=== PATIENT | female | born 1955 | race Two or more races ===

== ENCOUNTER 2021-01-19 21:47 | Inpatient (IN) | payer BC, OTHER ==
[~2021-01-19] VITALS: Ht 165.1 cm; Wt 56.7 kg
[2021-01-19 23:12] LABS: BASOPHILS # (AUTO) 0.2 K/uL (0.0-0.2); BASOPHILS % (AUTO) 0.9 % (0.0-2.0); HEMATOCRIT 23 % (33-45); HEMOGLOBIN 7.2 g/dL (11.5-14.8); LYMPHOCYTES # (AUTO) 13.4 K/uL (0.8-4.8); LYMPHOCYTES % (AUTO) 56.1 % (20.0-44.0); MEAN CORPUSCULAR HGB CONC 32 g/dl (31.0-36.0); MEAN CORPUSCULAR VOLUME 103 fL (82-100); MONOCYTES # (AUTO) 0.6 K/uL (0.1-1.30); MONOCYTES % (AUTO) 2.4 % (2.0-12.0); NEUTROPHILS # (AUTO) 9.7 K/uL (1.8-8.9); NEUTROPHILS % (AUTO) 40.6 % (43.0-81.0); PLATELET COUNT (AUTO) 145 K/uL (150-450); RED BLOOD CELL COUNT(AUTO) 2.21 MIL/uL (4.0-5.2); WHITE BLOOD COUNT (AUTO) 23.9 K/uL (4.3-11.0)
[2021-01-19 23:33] LABS: CALCIUM, SERUM 8.4 mg/dL (8.5-10.1); CARBON DIOXIDE 24 mmol/L (21-32); CHLORIDE 101 mmol/L (98-107); GLUCOSE 338 mg/dL (74-106); POTASSIUM 3.9 mmol/L (3.5-5.1); SODIUM SERUM 136 mmol/L (136-145); UREA NITROGEN, BLOOD 16 mg/dL (7-18)
[2021-01-19 23:34] LABS: CREATININE 1.1 mg/dL (0.6-1.3)
--- NOTE | 2021-01-19 23:45 | NUR ---
PT [email or web address] C/O L RIB LATERAL RIB PAIN X 3 DAYS. AGGREAVATED BY PALPATION AND MOVEMENT. PT IN STABLE CONDITION RESTING IN BED.
--- NOTE | 2021-01-19 23:53 | NUR ---
CALLED NONA FOR X RAY READ
[2021-01-20] MEDS ORDERED: IOHEXOL-350 100 ML VIAL IV ONE (00:13)
--- NOTE | 2021-01-20 00:13 | NUR ---
taken to radiology
[2021-01-20] MEDS ORDERED: IV NS 0.9% 250 ML IV ONE (00:14)
--- NOTE | 2021-01-20 00:30 | NUR ---
BACK FROM CT
--- NOTE | 2021-01-20 00:53 | NUR ---
called dung to have images read
[2021-01-20] MEDS ORDERED: IV NS 0.9% 1,000 ML IV ONE (01:00)
[2021-01-20] MEDS ORDERED: ONDANSETRON HCL/PF - ER 4 MG/2 ML VIAL IV ONE (01:00)
[2021-01-20] MEDS ORDERED: MORPHINE SULFATE INJ 2 MG/ML DISP.SYRIN IV ONE (01:00)
[2021-01-20] MEDS ORDERED: ONDANSETRON HCL/PF 4 MG/2 ML VIAL ONE (01:01)
--- NOTE | 2021-01-20 01:45 | NUR ---
COVID SWAB DONE AND SENT TO LAB
--- NOTE | 2021-01-20 02:02 | NUR ---
urine collected and sent to lab.
[2021-01-20 02:45] LABS: BILIRUBIN,URINE NEGATIVE (NEGATIVE); COLOR,URINE YELLOW (YELLOW); LEUKOCYTE ESTERASE ,URINE NEGATIVE (NEGATIVE); NITRITE, URINE NEGATIVE (NEGATIVE); PROTEIN,URINE TRACE mg/dl (NEGATIVE); UGLUCOSE >=1000 mg/dL (NEGATIVE)
[2021-01-20 02:55] LABS: BACTERIA,URINE None seen /HPF (None Seen); MUCUS,URINE Few /LPF (None Seen); RBC,URINE 0-2 /HPF (0-2); SQUAMOUS EPITHELIAL CELL,UR Few /HPF (None Seen); WBC,URINE 0-2 /HPF (0-3)
[2021-01-20] MEDS ORDERED: MAG HYDROX/AL HYDROX/SIMETH 30 ML UDC PO PRN (03:00)
[2021-01-20] MEDS ORDERED: TEMAZEPAM 15 MG CAPSULE PO PRN (03:00)
[2021-01-20] MEDS ORDERED: MAGNESIUM HYDROXIDE 30 ML UDC PO PRN (03:00)
[2021-01-20] MEDS ORDERED: DEXTROSE 50%-WATER 50 ML DISP.SYRIN IV PRN (03:00)
[2021-01-20] MEDS ORDERED: Z GUARD REMEDY 2 OZ OINT TP PRN (03:00)
--- NOTE | 2021-01-20 03:14 | NUR ---
report given to Irasema on third floor
[2021-01-20] MEDS ORDERED: IBRU70CA PO (03:27)
[2021-01-20] MEDS ORDERED: ATEN25TA PO (03:27)
[2021-01-20] MEDS ORDERED: LOSA25TA27 PO (03:27)
--- NOTE | 2021-01-20 03:43 | NUR ---
pt was transferred to the third floor under acls
[2021-01-20 03:45] VITALS: BP 154/69
[2021-01-20 03:50] VITALS: BP 154/69
[2021-01-20] MEDS: ACETAMINOPHEN 325 MG TABLET PO PRN (04:32)
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
[2021-01-20] MEDS: MORPHINE SULFATE INJ 2 MG/ML DISP.SYRIN IV PRN ×2 (05:10→20:50)
--- NOTE | 2021-01-20 05:22 | NUR ---
alerted MD that WBC 23.9. md replied no abx indicated
--- NOTE | 2021-01-20 06:23 | NUR ---
patient still A&Ox4. ST on monitor approx. 103. states morphine was helpful in relieving pain.
[2021-01-20] MEDS: BLOOD SUGAR DIAGNOSTIC 1 EACH STRIP IN SCH ×4 (06:58→21:29)
--- NOTE | 2021-01-20 07:30 | NUR ---
STEREOTYPE CASTER NOTES ON TELE MONITOR CURRENTLY READING NORMAL SINUS RHYTHM AT 72BPM.
--- NOTE | 2021-01-20 07:30 | NUR ---
ACCORDION MAKER OPENING NOTES RECEIVED PATIENT AWAKE ON BED AND A/O X4. ON ROOM AIR TOLERATING WELL. NO SOB NOTED. NOT IN DISTRESS. WITH IV ACCESS AT LEFT AC G18, SALINE LOCKED AND AT RIGHT FOREARM G18, SALINE LOCKED. PATENT AND INTACT. SAFETY MEASURES IN PLACED. CALL LIGHT WITHIN REACH. BED ON LOWEST AND LOCKED POSITION, SIDE RAILS UP X2. WILL CONTINUE TO MONITOR.
[2021-01-20 08:00] VITALS: BP 157/69
[2021-01-20] MEDS: ASPIRIN 81 MG TAB.CHEW PO SCH (08:08)
[2021-01-20] MEDS: PANTOPRAZOLE 40 MG TABLET.DR PO SCH (08:08)
[2021-01-20] MEDS: HYDROCODONE/APAP 5/325MG TABLET PO PRN ×2 (08:09→17:23)
[2021-01-20] MEDS ORDERED: IBRU420T PO (08:42)
[2021-01-20] MEDS ORDERED: CLON0.1T PO (08:42)
[2021-01-20] MEDS ORDERED: HYDR25TA4 PO (08:42)
[2021-01-20] MEDS ORDERED: ALPR0.255 PO (08:42)
[2021-01-20] MEDS ORDERED: AMLO-213 PO (08:42)
[2021-01-20] MEDS ORDERED: VANCOMYCIN HCL 1.25 GM in IV D5W 260 ML IV ONE (11:00)
[2021-01-20] MEDS ORDERED: PIPERACILLIN /TAZOBACTAM 4.5 G in IV D5W 50 ML IV SCH (12:00)
[2021-01-20] MEDS: INDOMETHACIN 25 MG CAPSULE PO SCH ×2 (12:08→20:50)
[2021-01-20] MEDS: INSULIN REGULAR, HUMAN 100 UNIT/ML 3 ML VIAL SQ PRN ×2 (12:41→17:54)
[2021-01-20 12:55] LABS: BASOPHILS % (AUTO) 0.1 % (0.0-2.0); EOSINOPHILS % (AUTO) 0.1 % (0.0-6.0); HEMATOCRIT 23 % (33-45); HEMOGLOBIN 7.3 g/dL (11.5-14.8); LYMPHOCYTES # (AUTO) 23.9 K/uL (0.8-4.8); LYMPHOCYTES % (AUTO) 66.2 % (20.0-44.0); MEAN CORPUSCULAR HGB CONC 31 g/dl (31.0-36.0); MEAN CORPUSCULAR VOLUME 105 fL (82-100); MONOCYTES # (AUTO) 1.1 K/uL (0.1-1.30); MONOCYTES % (AUTO) 2.9 % (2.0-12.0); NEUTROPHILS # (AUTO) 11.1 K/uL (1.8-8.9); NEUTROPHILS % (AUTO) 30.7 % (43.0-81.0); PLATELET COUNT (AUTO) 156 K/uL (150-450); RED BLOOD CELL COUNT(AUTO) 2.23 MIL/uL (4.0-5.2)
[2021-01-20 12:59] LABS: WHITE BLOOD COUNT (AUTO) 36.1 K/uL (4.3-11.0)
[2021-01-20 14:03] LABS: THYROID STIMULATING HORMONE 0.732 uIU/mL (0.358-3.74); URIC ACID 7.8 mg/dL (2.6-7.2)
[2021-01-20] MEDS: VANCOMYCIN 1 GM in IV D5W 250 ML IV SCH (14:10)
[2021-01-20 14:43] LABS: LYMPHOCYTES % (MANUAL) 60 % (16-48); MONOCYTES % (MANUAL) 5 % (0-11.0); NEUTROPHILS % (MANUAL) 35 (42-76)
[2021-01-20 14:51] LABS: BILIRUBIN,DIRECT 1.4 mg/dL (0.0-0.2); BILIRUBIN,TOTAL 2.5 mg/dL (0.2-1.0); CALCIUM, SERUM 8.4 mg/dL (8.5-10.1); POTASSIUM 3.7 mmol/L (3.5-5.1); TOTAL PROTEIN, SERUM 7.1 g/dL (6.4-8.2)
[2021-01-20 16:00] VITALS: BP 134/62
[2021-01-20] MEDS: PIPERACILLIN /TAZOBACTAM 3.375 G in IV D5W 50 ML IV SCH ×2 (16:10→18:20)
--- NOTE | 2021-01-20 19:31 | NUR ---
TEMPORARY STAFF ACCOUNTANT CLOSING NOTES PATIENT RESTING ON BED AND A/O X4. ON ROOM AIR TOLERATING WELL. NO SOB NOTED. NOT IN DISTRESS. WITH IV ACCESS AT LEFT AC G18, SALINE LOCKED AND AT RIGHT FOREARM G18, SALINE LOCKED. PATENT AND INTACT. DUE MEDS GIVEN. SAFETY MEASURES IN PLACED. CALL LIGHT WITHIN REACH. BED ON LOWEST AND LOCKED POSITION, SIDE RAILS UP X2. WILL ENDORSE TO NEXT SHIFT FOR FARAZ.
--- NOTE | 2021-01-20 19:45 | NUR ---
Patient is A&Ox4. IV to LFA patent and flushed. states that her L chest pain has greatly subsided and she feels more energy/less fatigue than day prior. denies SOB. No hypo or hyperglycemic s or sx. Educated pt. that she will be NPO post midnight for US guided thoracentesis -pt. verbalizes understanding.
[2021-01-20 20:00] VITALS: BP 134/88
[2021-01-21] VITALS (8 sets, daily range): BP systolic 113–141; BP diastolic 47–69
[2021-01-21] MEDS: PIPERACILLIN /TAZOBACTAM 3.375 G in IV D5W 50 ML IV SCH ×5 (00:01→23:09)
[2021-01-21] MEDS: INDOMETHACIN 25 MG CAPSULE PO SCH (05:28)
[2021-01-21 06:34] LABS: BASOPHILS % (AUTO) 0.1 % (0.0-2.0); EOSINOPHILS % (AUTO) 0.2 % (0.0-6.0); LYMPHOCYTES # (AUTO) 15.1 K/uL (0.8-4.8); LYMPHOCYTES % (AUTO) 66.2 % (20.0-44.0); MEAN CORPUSCULAR HGB CONC 32 g/dl (31.0-36.0); MEAN CORPUSCULAR VOLUME 104 fL (82-100); MONOCYTES # (AUTO) 0.7 K/uL (0.1-1.30); MONOCYTES % (AUTO) 3.1 % (2.0-12.0); NEUTROPHILS # (AUTO) 6.9 K/uL (1.8-8.9); NEUTROPHILS % (AUTO) 30.4 % (43.0-81.0); PLATELET COUNT (AUTO) 130 K/uL (150-450); WHITE BLOOD COUNT (AUTO) 22.9 K/uL (4.3-11.0)
[2021-01-21] MEDS: INSULIN REGULAR, HUMAN 100 UNIT/ML 3 ML VIAL SQ PRN ×3 (06:49→21:08)
[2021-01-21] MEDS: BLOOD SUGAR DIAGNOSTIC 1 EACH STRIP IN SCH ×4 (06:53→21:06)
--- NOTE | 2021-01-21 07:00 | NUR ---
Patient A&Ox4. denies pain or discomfort at this time reporting that L chest pain has greatly subsided. assisted to BSC for toileting. Patient still reports feeling stronger than day prior. inserted new IV R wrist #22G because pt reports flushes were stinging even though they were going through smoothly to RAC #18G. No irritation To R wrist #22G. No other overnight issues.
[2021-01-21 07:02] LABS: RED BLOOD CELL COUNT(AUTO) 1.78 MIL/uL (4.0-5.2)
[2021-01-21 07:03] LABS: HEMATOCRIT 18 % (33-45); HEMOGLOBIN 5.9 g/dL (11.5-14.8)
--- NOTE | 2021-01-21 07:08 | NUR ---
Received call from lab at 07 critical hgb 5.9 and hct 18.4. hugh Gorman at 0705
--- NOTE | 2021-01-21 07:41 | NUR ---
MS/RN OPENING NOTES RECEIVED PATIENT ON BED AWAKE ALERT AND ORIENTED X4. PATIENT IS ON ROOM AIR. PATIENT IN NO APPARENT RESPIRATORY DISTRESS NOTED. NO COMPLAINED OF PAIN AT THIS TIME. WILL CONTINUE TO MONITOR.
[2021-01-21 07:48] LABS: CALCIUM, SERUM 8.2 mg/dL (8.5-10.1); CREATININE 1.3 mg/dL (0.6-1.3); MAGNESIUM 2.1 mg/dL (1.8-2.4); PHOSPHORUS 3.3 mg/dL (2.5-4.9); POTASSIUM 3.6 mmol/L (3.5-5.1)
[2021-01-21] MEDS: PANTOPRAZOLE 40 MG TABLET.DR PO SCH (07:50)
[2021-01-21 07:51] LABS: THYROID STIMULATING HORMONE 0.498 uIU/mL (0.358-3.74)
[2021-01-21] MEDS: ASPIRIN 81 MG TAB.CHEW PO SCH (09:00)
[2021-01-21 09:32] LABS: LYMPHOCYTES % (MANUAL) 70 % (16-48); MONOCYTES % (MANUAL) 4 % (0-11.0); NEUTROPHILS % (MANUAL) 26 (42-76)
[2021-01-21 10:07] LABS: *SPE A/G RATIO 0.9 (0.7-1.7); *SPE ALPHA-1-GLOBULIN 0.6 g/dL (0.0-0.4); *SPE BETA GLOBULIN 0.7 g/dL (0.7-1.3); *SPE M-SPIKE 0.1 g/dL (Not Observed); IMMUNOGLOBULIN A, SERUM 55 mg/dL (87-352); IMMUNOGLOBULIN G, SERUM 580 mg/dL (586-1602); IMMUNOGLOBULIN M, SERUM 44 mg/dL (26-217)
[2021-01-21] MEDS ORDERED: ACETAMINOPHEN 325 MG TABLET PO ONE (11:30)
[2021-01-21] MEDS ORDERED: diphenhydrAMINE HCL 50 MG/ML VIAL IV ONE (11:30)
[2021-01-21] MEDS: GLUCERNA SHAKE 237 ML CAN PO SCH ×2 (12:00→17:08)
--- NOTE | 2021-01-21 12:00 | NUR ---
RN NOTES BS 207MG/DL INSULIN 4 UNITS NOT ADMINISTERED PATIENT REFUSED AND VERBALIZED THAT SHE DOESN'T WANT TO EAT LUNCH. EXPLAINED THE RISK AND BENEFITS. WILL CONTINUE TO MONITOR.
[2021-01-21 12:02] LABS: ALBUMIN 2.3 g/dL (3.4-5.0); BILIRUBIN,DIRECT 1.3 mg/dL (0.0-0.2)
[2021-01-21] MEDS: VANCOMYCIN 1 GM in IV D5W 250 ML IV SCH (13:26)
--- NOTE | 2021-01-21 15:38 | NUR ---
RN NOTES BLOOD TRANSFUSION WAS DONE NO BLOOD TRANSFUSION REACTION WAS NOTED FROM START TO FINISHED VITAL TAKEN AND RECORDED. WILL CONTINUE TO MONITOR.
[2021-01-21] MEDS: MORPHINE SULFATE INJ 2 MG/ML DISP.SYRIN IV PRN ×2 (18:51→23:19)
--- NOTE | 2021-01-21 18:56 | NUR ---
MS/RN CLOSING NOTES PATIENT IS ON BED AWAKE ALERT AND ORIENTED X4. PATIENT IS ON ROOM AIR. PATIENT IN NO APPARENT RESPIRATORY DISTRESS NOTED. NO COMPLAINED OF PAIN AT THIS TIME. IV ACCESS AT WRIST #22G AND LAC # 20G PATENT AND INTACT. SEEN AND EXAMINED BY MD WITH ORDERS MADE AND CARRIED OUT. ALL DUE MEDICATIONS WAS GIVEN. SAFETY PRECAUTIONS WAS IN PLACED. BED IN LOWEST POSITION AND LOCKED. SIDERAILS UP X2. CALL LIGHT WITHIN REACH. LEFT LUNG US GUIDED THORACENTESIS DONE 200 CC WAS OUT SPECIMEN WAS SENT TO LAB FOR PATHOLOGY. WILL ENDORSED TO FIELD CROP HARVEST CONTRACTOR FOR FARAZ.
--- NOTE | 2021-01-21 19:24 | NUR ---
MS RN OPENING NOTES RECEIVED PATIENT IN BED, SLEEPING, AWAKENS TO VERBAL STIMULI. PT IS AOx4. ABLE TO MAKE NEEDS KNOWN. ON RA AND TOLERATING WELL. NO SOB NOTED. NO S/SX OF RESPIRATORY DISTRESS NOTED. IV ACCESS IN R WRIST #22G AND L AC #18G. IVs ARE INTACT, PATENT, AND FLUSHING WELL. SAFETY PRECAUTIONS IN PLACE: BED IN LOWEST, LOCKED POSITION, BRAKES ON, SIDERAILS UPx2. TABLE AND CALL LIGHT WITHIN REACH. WILL CONTINUE TO MONITOR.
--- NOTE | 2021-01-21 23:28 | NUR ---
ADMINISTERED MORPHINE @ 2319. VITAL SIGNS WNL. WILL CONTINUE TO MONITOR.
[2021-01-22] MEDS: PIPERACILLIN /TAZOBACTAM 3.375 G in IV D5W 50 ML IV SCH ×3 (05:09→17:07)
[2021-01-22] MEDS: MORPHINE SULFATE INJ 2 MG/ML DISP.SYRIN IV PRN ×2 (05:11→20:40)
--- NOTE | 2021-01-22 05:11 | NUR ---
ADMINISTERED MORPHINE @0511, PER MD ORDER FOR PAIN. VITAL SIGNS WNL. WILL CONTINUE TO MONITOR.
[2021-01-22] MEDS: BLOOD SUGAR DIAGNOSTIC 1 EACH STRIP IN SCH ×4 (06:13→21:57)
[2021-01-22] MEDS: INSULIN REGULAR, HUMAN 100 UNIT/ML 3 ML VIAL SQ PRN ×3 (06:31→22:08)
--- NOTE | 2021-01-22 06:39 | NUR ---
MS RN CLOSING NOTES PATIENT IN BED, ASLEEP, AWAKENS TO VERBAL STIMULI. PT IS AOx4. ABLE TO MAKE NEEDS KNOWN. ON RA AND TOLERATING WELL. NO SOB NOTED. NO S/SX OF RESPIRATORY DISTRESS NOTED. IV ACCESS IN R WRIST #22G AND L AC #18G. IVs ARE INTACT, PATENT, AND FLUSHING WELL. TREATED PAIN THROUGHOUT SHIFT. ALL NEEDS MET. PT KEPT CLEAN AND DRY. SAFETY PRECAUTIONS IN PLACE: BED IN LOWEST, LOCKED POSITION, BRAKES ON, SIDERAILS UPx2. TABLE AND CALL LIGHT WITHIN REACH. WILL ENDORSE TO ONCOMING SHIFT.
[2021-01-22 07:08] LABS: BASOPHILS # (AUTO) 0.1 K/uL (0.0-0.2); BASOPHILS % (AUTO) 0.2 % (0.0-2.0); EOSINOPHILS % (AUTO) 0.4 % (0.0-6.0); HEMATOCRIT 24 % (33-45); LYMPHOCYTES # (AUTO) 15.9 K/uL (0.8-4.8); LYMPHOCYTES % (AUTO) 60.7 % (20.0-44.0); MEAN CORPUSCULAR HGB CONC 33 g/dl (31.0-36.0); MEAN CORPUSCULAR VOLUME 98 fL (82-100); MONOCYTES # (AUTO) 1.1 K/uL (0.1-1.30); MONOCYTES % (AUTO) 4.1 % (2.0-12.0); NEUTROPHILS # (AUTO) 9.1 K/uL (1.8-8.9); NEUTROPHILS % (AUTO) 34.6 % (43.0-81.0); PLATELET COUNT (AUTO) 178 K/uL (150-450); RED BLOOD CELL COUNT(AUTO) 2.48 MIL/uL (4.0-5.2); WHITE BLOOD COUNT (AUTO) 26.2 K/uL (4.3-11.0)
[2021-01-22 07:35] LABS: ALBUMIN 2.1 g/dL (3.4-5.0); BILIRUBIN,TOTAL 2.1 mg/dL (0.2-1.0); CALCIUM, SERUM 8.3 mg/dL (8.5-10.1); CREATININE 1.2 mg/dL (0.6-1.3); MAGNESIUM 2.1 mg/dL (1.8-2.4); PHOSPHORUS 2.8 mg/dL (2.5-4.9); POTASSIUM 3.3 mmol/L (3.5-5.1)
--- NOTE | 2021-01-22 07:56 | NUR ---
RN OPENING NOTE PT AWAKE IN BED RESTING. ON RA WITH NO SOB OR RESPIRATORY DISTRESS PRESENT. A/O X4 AND KYRGYZ SPEAKING. NO COMPLAINT OF PAIN OR NAUSEA PRESENT. NO SCHEDULING CLERK PRESENT. NO EDEMA PRESENT. SELF AMBULATORY WITH STANDBY ASSIST. BATHROOM PRIVILEGES. SKIN ISSUES PRESENT, PICTURES IN CHART, WOUND CARE ORDERED. IV PRESENT ON R WRIST 22G AND L AC 18G AND FLUSHES WELL. SALINE LOCKED. LABS AND ORDERS REVIEWED. SAFETY MEASURES IN PLACE. SIDE RAILS RAISED. BED LOWERED. CALL LIGHT WITHIN REACH. WILL CONTINUE TO MONITOR.
[2021-01-22 08:00] VITALS: BP 143/61
[2021-01-22] MEDS: ACETAMINOPHEN 325 MG TABLET PO PRN (08:48)
[2021-01-22] MEDS: ASPIRIN 81 MG TAB.CHEW PO SCH (08:48)
[2021-01-22] MEDS: PANTOPRAZOLE 40 MG TABLET.DR PO SCH (08:48)
[2021-01-22] MEDS: GLUCERNA SHAKE 237 ML CAN PO SCH ×2 (08:48→17:07)
--- NOTE | 2021-01-22 10:00 | NUR ---
RN NOTE RECEIVED TELEPHONE ORDER FROM DR QUINONES FOR PIGTAIL INSERTION IN LEFT LUNG. CONSENTS SIGNED, RADIOLOGY INFORMED. WILL CONTINUE TO MONITOR.
[2021-01-22] MEDS ORDERED: POTASSIUM CHLORIDE 20 MEQ TAB.PRT.SR PO SCH (11:30)
[2021-01-22] MEDS: VANCOMYCIN 1 GM in IV D5W 250 ML IV SCH (12:09)
[2021-01-22] MEDS ORDERED: NALOXONE PREFILLED SYRINGE 2 MG/2 ML SYRINGE IV ONE (14:30)
[2021-01-22] MEDS ORDERED: MIDAZOLAM HCL 5MG/ML VIAL 25 MG/5 ML VIAL IV ONE (14:30)
[2021-01-22] MEDS ORDERED: FENTANYL PF 250MCG/5ML AMPUL IV ONE (14:30)
[2021-01-22 16:00] VITALS: BP 140/60
[2021-01-22] MEDS: HYDROCODONE/APAP 5/325MG TABLET PO PRN (17:07)
--- NOTE | 2021-01-22 18:13 | NUR ---
RN CLOSING NOTE PT AWAKE IN BED RESTING. ON RA WITH NO SOB OR RESPIRATORY DISTRESS PRESENT. A/O X4 AND MAORI SPEAKING. NO COMPLAINT OF PAIN OR NAUSEA PRESENT. NO SPRING UPHOLSTERER PRESENT. NO EDEMA PRESENT. SELF AMBULATORY WITH STANDBY ASSIST. BATHROOM PRIVILEGES. SKIN ISSUES PRESENT, PICTURES IN CHART, WOUND CARE ORDERED. IV PRESENT ON R WRIST 22G AND L AC 18G AND FLUSHES WELL. SALINE LOCKED. LABS AND ORDERS REVIEWED. SAFETY MEASURES IN PLACE. SIDE RAILS RAISED. BED LOWERED. CALL LIGHT WITHIN REACH. WILL GIVE REPORT TO NIGHT NURSE FOR FARAZ.
--- NOTE | 2021-01-22 19:35 | NUR ---
MS/RN OPENING NOTE RECEIVED PATIENT RESTING IN BED. AWAKE, ALERT AND ORIENTED X 4. ABLE TO MAKE NEEDS KNOWN. DENIES PAIN AT THIS TIME. CONTINUES ON ROOM AIR WITH NO S/SX OF RESPIRATORY DISTRESS NOTED. IV ACCESS TO RIGHT WRIST #22G AND LEFT AC #18G BOTH INTACT, PATENT AND SALINE LOCKED. PIGTAIL DRAIN TO LEFT CHEST INTACT DRAINING SEROSANGUINEOUS DRAINAGE. CALL LIGHT WITHIN REACH. ASPIRATION, FALL AND SAFETY PRECAUTIONS MAINTAINED. WILL CONTINUE TO MONITOR.
[2021-01-22 20:00] VITALS: BP 149/67
--- NOTE | 2021-01-22 20:47 | NUR ---
MS/RN NOTE IV TO RIGHT WRIST 22G INFILTRATED. IV REMOVED WITH TIP INTACT AND PATENT TOLERATING WELL. IV TO LEFT AC #18G INTACT, PATENT AND SALINE LOCKED.
[2021-01-23] MEDS: PIPERACILLIN /TAZOBACTAM 3.375 G in IV D5W 50 ML IV SCH ×5 (00:08→23:57)
[2021-01-23] MEDS: MORPHINE SULFATE INJ 2 MG/ML DISP.SYRIN IV PRN ×2 (00:43→05:22)
[2021-01-23 06:30] LABS: BASOPHILS # (AUTO) 0.1 K/uL (0.0-0.2); BASOPHILS % (AUTO) 0.2 % (0.0-2.0); EOSINOPHILS % (AUTO) 0.3 % (0.0-6.0); HEMATOCRIT 24 % (33-45); HEMOGLOBIN 7.8 g/dL (11.5-14.8); MEAN CORPUSCULAR HGB CONC 33 g/dl (31.0-36.0); MEAN CORPUSCULAR VOLUME 98 fL (82-100); MONOCYTES # (AUTO) 1.3 K/uL (0.1-1.30); MONOCYTES % (AUTO) 4.4 % (2.0-12.0); NEUTROPHILS # (AUTO) 11.3 K/uL (1.8-8.9); NEUTROPHILS % (AUTO) 38.1 % (43.0-81.0); PLATELET COUNT (AUTO) 234 K/uL (150-450); RED BLOOD CELL COUNT(AUTO) 2.45 MIL/uL (4.0-5.2); WHITE BLOOD COUNT (AUTO) 29.7 K/uL (4.3-11.0)
[2021-01-23] MEDS: BLOOD SUGAR DIAGNOSTIC 1 EACH STRIP IN SCH ×4 (06:36→22:10)
[2021-01-23] MEDS: INSULIN REGULAR, HUMAN 100 UNIT/ML 3 ML VIAL SQ PRN ×4 (06:38→22:04)
--- NOTE | 2021-01-23 06:40 | NUR ---
MS/RN CLOSING NOTE PATIENT CURRENTLY RESTING IN BED. AWAKE, ALERT AND ORIENTED X 4. ABLE TO MAKE NEEDS KNOWN. DENIES PAIN AT THIS TIME. CONTINUES ON ROOM AIR WITH NO S/SX OF RESPIRATORY DISTRESS NOTED. IV ACCESS TO LEFT AC #18G INTACT, PATENT AND SALINE LOCKED. PIGTAIL DRAIN TO LEFT CHEST INTACT DRAINING SEROSANGUINEOUS DRAINAGE. OUTPUT THIS SHIFT WAS 100CC. CALL LIGHT WITHIN REACH. ASPIRATION, FALL AND SAFETY PRECAUTIONS MAINTAINED. WILL ENDORSE PLAN OF CARE TO ONCOMING SHIFT.
[2021-01-23 07:04] LABS: BILIRUBIN,TOTAL 1.4 mg/dL (0.2-1.0); CALCIUM, SERUM 8.1 mg/dL (8.5-10.1); MAGNESIUM 2.1 mg/dL (1.8-2.4); PHOSPHORUS 2.8 mg/dL (2.5-4.9); POTASSIUM 3.2 mmol/L (3.5-5.1); TOTAL PROTEIN, SERUM 6.1 g/dL (6.4-8.2)
--- NOTE | 2021-01-23 07:17 | NUR ---
RN OPENING NOTE PT AWAKE IN BED RESTING. ON RA WITH NO SOB OR RESPIRATORY DISTRESS PRESENT. A/O X4 AND CHINESE SPEAKING. NO COMPLAINT OF PAIN OR NAUSEA PRESENT. NO MELTING OPERATOR PRESENT. NO EDEMA PRESENT. SELF AMBULATORY WITH STANDBY ASSIST. BATHROOM PRIVILEGES. SKIN ISSUES PRESENT, PICTURES IN CHART, WOUND CARE ORDERED. IV PRESENT ON R WRIST 22G AND L AC 18G AND FLUSHES WELL. SALINE LOCKED. LABS AND ORDERS REVIEWED. SAFETY MEASURES IN PLACE. SIDE RAILS RAISED. BED LOWERED. CALL LIGHT WITHIN REACH. WILL CONTINUE TO MONITOR.
[2021-01-23] MEDS: PANTOPRAZOLE 40 MG TABLET.DR PO SCH (08:01)
[2021-01-23] MEDS: GLUCERNA SHAKE 237 ML CAN PO SCH ×2 (08:01→17:11)
[2021-01-23] MEDS: HYDROCODONE/APAP 5/325MG TABLET PO PRN (08:01)
[2021-01-23] MEDS: ASPIRIN 81 MG TAB.CHEW PO SCH (08:01)
--- NOTE | 2021-01-23 18:42 | NUR ---
RN CLOSING NOTE PT AWAKE IN BED RESTING. ON RA WITH NO SOB OR RESPIRATORY DISTRESS PRESENT. A/O X4 AND ESTONIAN SPEAKING. NO COMPLAINT OF PAIN OR NAUSEA PRESENT. NO STAMP MACHINE SERVICER PRESENT. NO EDEMA PRESENT. SELF AMBULATORY WITH STANDBY ASSIST. BATHROOM PRIVILEGES. SKIN ISSUES PRESENT, PICTURES IN CHART, WOUND CARE ORDERED. IV PRESENT ON R WRIST 22G AND L AC 18G AND FLUSHES WELL. SALINE LOCKED. LABS AND ORDERS REVIEWED. SAFETY MEASURES IN PLACE. SIDE RAILS RAISED. BED LOWERED. CALL LIGHT WITHIN REACH. WILL GIVE REPORT TO NIGHT NURSE FOR FARAZ.
--- NOTE | 2021-01-23 19:32 | NUR ---
RN OPENING NOTES: RECEIVED PATIENT AWAKE IN BED, BED IN LOW POSITION, CALL LIGHTS WITHIN REACH, NO COMPLAIN OF PAIN AND DISCOMFORT AT THIS TIME, , ON NC @2LPM NO SOB WAS OBSERVED, PATIENT IS A/0X1 DOMINICAN SPEAKING WITH RUDY MIDLINE, RT SUBCLAVIAN PERMCATH DONE DIALYSIS 01/23 1730CC, PATIENT ON BILATERAL SOFT RESTRAINT, PATIENT KEPT COMFORTABLE, REMIND TO USE THE CALL LIGHTS WHEN NEEDED ASSISTANCE, WILL CONTINUE TO MONITOR. Addendum: 01/23/21 at 1936 by ALEXSANDER ARTEAGA RN RN NOTES: WRONG DOCUMENTATION OPENING NOTES INTENDED FOR PATIENT 311-2
--- NOTE | 2021-01-23 19:36 | NUR ---
RN OPENING NOTES: RECEIVED PATIENT AWAKE IN BED, BED IN LOW POSITION, CALL LIGHTS WITHIN REACH, NO COMPLAIN OF PAIN AND DISCOMFORT AT THIS TIME, PATIENT IS A/OX4 AMBULATORY WITH SUPERVISION PATIENT HAS PIGTAIL ON LEFT LUNG DRAINAGE INFUSING WELL. PATIENT IV LINE AT LAC #18 SL, KEPT CLEAN AND DRY ALL NEEDS MET, WILL CONTINUE TO MONITOR.
[2021-01-23 20:00] VITALS: BP 163/68
[2021-01-24] MEDS: ACETAMINOPHEN 325 MG TABLET PO PRN (00:25)
--- NOTE | 2021-01-24 00:29 | NUR ---
RN NOTES: PATIENT WAS GIVEN PRN ACETAMINOPHEN 650 MG FOR FEVER 101.4, PROVIDE BILATERAL ICE PACK ON BOTH ARMPIT.
[2021-01-24] MEDS: MORPHINE SULFATE INJ 2 MG/ML DISP.SYRIN IV PRN (00:48)
[2021-01-24 06:03] LABS: BASOPHILS # (AUTO) 0.1 K/uL (0.0-0.2); BASOPHILS % (AUTO) 0.2 % (0.0-2.0); EOSINOPHILS % (AUTO) 0.1 % (0.0-6.0); HEMATOCRIT 24 % (33-45); HEMOGLOBIN 7.6 g/dL (11.5-14.8); LYMPHOCYTES # (AUTO) 18.2 K/uL (0.8-4.8); LYMPHOCYTES % (AUTO) 61.6 % (20.0-44.0); MEAN CORPUSCULAR HGB CONC 32 g/dl (31.0-36.0); MEAN CORPUSCULAR VOLUME 99 fL (82-100); MONOCYTES # (AUTO) 1.5 K/uL (0.1-1.30); MONOCYTES % (AUTO) 5.1 % (2.0-12.0); NEUTROPHILS # (AUTO) 9.8 K/uL (1.8-8.9); PLATELET COUNT (AUTO) 257 K/uL (150-450); RED BLOOD CELL COUNT(AUTO) 2.38 MIL/uL (4.0-5.2); WHITE BLOOD COUNT (AUTO) 29.6 K/uL (4.3-11.0)
[2021-01-24] MEDS: PIPERACILLIN /TAZOBACTAM 3.375 G in IV D5W 50 ML IV SCH (06:03)
--- NOTE | 2021-01-24 06:25 | NUR ---
RN CLOSING NOTES: RECEIVED PATIENT SLEEP IN BED COMFORTABLY, AROUSABLE TO STIMULI, BED IN LOW POSITION, CALL LIGHTS WITHIN REACH, NO COMPLAIN OF PAIN AN DISCOMFORT AT THIS TIME, PATIENT HAS BRP SELF AMBULATORY, WITH IV LINE AT LAC#18 SL, WITH PIGTAIL AT LEFT PLEURAL SPACE DRAINING WELL WITH , PATIENT KEPT CLEAN AND DRY, ALL NEEDS MET, ENDORSE TO INCOMING SHIFT.
[2021-01-24 06:44] LABS: ALBUMIN 1.8 g/dL (3.4-5.0); BILIRUBIN,TOTAL 1.3 mg/dL (0.2-1.0); CALCIUM, SERUM 8.1 mg/dL (8.5-10.1); CREATININE 0.9 mg/dL (0.6-1.3); MAGNESIUM 2.3 mg/dL (1.8-2.4); PHOSPHORUS 3.1 mg/dL (2.5-4.9); TOTAL PROTEIN, SERUM 5.8 g/dL (6.4-8.2)
[2021-01-24] MEDS: INSULIN REGULAR, HUMAN 100 UNIT/ML 3 ML VIAL SQ PRN ×4 (07:02→22:52)
--- NOTE | 2021-01-24 07:30 | NUR ---
RN NOTES RECEIVED PATIENT RESTING IN BED. AWAKE, ALERT AND ORIENTED X 4. ABLE TO MAKE NEEDS KNOWN. DENIES PAIN AT THIS TIME. NO SIGNS OF RESPIRATORY DISTRESS NOTED. IV ACCESS TO LEFT AC #18G, PATENT AND SALINE LOCKED. PIGTAIL DRAIN TO LEFT CHEST INTACT DRAINING SEROSANGUINEOUS DRAINAGE. CALL LIGHT WITHIN REACH. ASPIRATION, FALL AND SAFETY PRECAUTIONS MAINTAINED. WILL CONTINUE TO MONITOR.
[2021-01-24] MEDS: BLOOD SUGAR DIAGNOSTIC 1 EACH STRIP IN SCH ×4 (07:47→22:50)
[2021-01-24 08:00] VITALS: BP 111/52
[2021-01-24] MEDS: ASPIRIN 81 MG TAB.CHEW PO SCH (08:07)
[2021-01-24] MEDS: PANTOPRAZOLE 40 MG TABLET.DR PO SCH (08:07)
[2021-01-24] MEDS: GLUCERNA SHAKE 237 ML CAN PO SCH ×2 (08:16→16:25)
[2021-01-24] MEDS ORDERED: POTASSIUM CHLORIDE 20 MEQ TAB.PRT.SR PO ONE ×2 (09:30→11:00)
[2021-01-24] MEDS ORDERED: CEFTRIAXONE 1GM BAG (ER ONLY) 1 GM/50 ML PIGGYBACK IV ONE (10:00)
[2021-01-24 10:24] LABS: LYMPHOCYTES % (MANUAL) 60 % (16-48); MONOCYTES % (MANUAL) 6 % (0-11.0); NEUTROPHILS % (MANUAL) 34 (42-76)
[2021-01-24] MEDS: CEFTRIAXONE 2 G in IV D5W 100 ML IV SCH (11:02)
--- NOTE | 2021-01-24 11:17 | NUR ---
RN NOTES ASSISTED W/ REPOSITIONING IN BED TOLERATED; OFFERED PAIN MEDICATION BUT PATIENT STATED SHE FEELS FINE AT THE MOMENT. NEW ORDER OF ROCEPHIN IV NOTED.
--- NOTE | 2021-01-24 14:00 | NUR ---
RN NOTES PATIENT SEEN BY DR. FONSECA TODAY AND INFORMED ABOUT PLAN OF CARE.
[2021-01-24 16:00] VITALS: BP 148/78
--- NOTE | 2021-01-24 18:59 | NUR ---
RN NOTES PATIENT RESTING IN BED W/ EYES CLOSED, ABLE TO BE AWAKENED. BREATHING EVEN AND UNLABORED. IV LINE INTACT AND PATENT. PIGTAIL CATH DRAIN IN PLACE, DRAINING SEROSANGUINEOUS DRAINAGE. NO COMPLAINT OF PAIN AT THIS TIME. ENCOURAGED W/ FLUIDS AND MEALS DURING THE DAY; ASSISTED W/ REPOSITIONING AND ADLS TOLERATED. DUE MEDS GIVEN. SAFETY MEASURES MAINTAINED. WILL ENDORSE TO INSPECTOR OUTSIDE STEAM DISTRIBUTION RN FOR FARAZ.
--- NOTE | 2021-01-24 19:40 | NUR ---
MS RN OPENING NOTES Patient is sleeping but easy to wake. A&Ox4. Reports feeling L sided chest/rib pain upon exertion only. Denies SOB. Although patient still reports fatigue. L pleural pigtail drain draining clear blood tinged output. IV to LAC intact and patent.
[2021-01-24] MEDS: HYDROCODONE/APAP 5/325MG TABLET PO PRN (20:13)
--- NOTE | 2021-01-24 20:17 | NUR ---
Patient now reports 6/10 L side chest/rib pain aggravated by ADLs -medicated as per MD order with PRN Nella.
[2021-01-24 23:03] VITALS: BP 177/78
[2021-01-25 01:16] VITALS: BP 146/85
[2021-01-25] MEDS: PANTOPRAZOLE 40 MG TABLET.DR PO SCH ×2 (06:30→08:40)
[2021-01-25] MEDS: BLOOD SUGAR DIAGNOSTIC 1 EACH STRIP IN SCH ×4 (06:37→21:59)
[2021-01-25] MEDS: INSULIN REGULAR, HUMAN 100 UNIT/ML 3 ML VIAL SQ PRN ×4 (06:39→22:03)
--- NOTE | 2021-01-25 06:45 | NUR ---
MS RN CLOSING NOTES Patient has been A&Ox4 throughout night. slept well though easy to wake. Afebrile. No s/sx of hypo or hyperglycemia. C/o pain to L ribs/chest x1 relieved by PRN Simpson. 20cc serosanguineous output to Pigtail drain L lung. Denies SOB. No signs of bleeding.
--- NOTE | 2021-01-25 07:10 | NUR ---
MS RN OPENING NOTE RECEIVED PATIENT ASLEEP IN BED BUT AROUSABLE. PATIENT IS ON OXYGEN AT 2LPM VIA NASAL CANULA SATURATING AT 99%. COMFORT MEASURES PROVIDED. PATIENT WITH IV ACCESS ON LEFT AC G 18 ON SALINE LOCK. COMFORT MEASURES PROVIDED. PATIENT WITH LEFT PLEURAL SPACE PIGTAIL WITH SERO SANGUINOUS DRAINAGE. SAFETY MEASURES ENSURED WITH BED ON LOCKED AND AT LOWEST POSITION. SIDERAILS RAISED WITH CALL LIGHT AND BEDSIDE TABLE WITHIN REACH AT ALL TIMES. WILL CONTINUE TO MONITOR PATIENT.
[2021-01-25 07:14] LABS: CALCIUM, SERUM 8.4 mg/dL (8.5-10.1); CREATININE 0.8 mg/dL (0.6-1.3); MAGNESIUM 2.2 mg/dL (1.8-2.4); PHOSPHORUS 2.6 mg/dL (2.5-4.9); TOTAL PROTEIN, SERUM 6.3 g/dL (6.4-8.2)
[2021-01-25 07:16] LABS: BASOPHILS % (AUTO) 0.1 % (0.0-2.0); EOSINOPHILS % (AUTO) 0.1 % (0.0-6.0); HEMATOCRIT 25 % (33-45); HEMOGLOBIN 7.9 g/dL (11.5-14.8); LYMPHOCYTES # (AUTO) 20.2 K/uL (0.8-4.8); LYMPHOCYTES % (AUTO) 62.5 % (20.0-44.0); MEAN CORPUSCULAR HGB CONC 32 g/dl (31.0-36.0); MEAN CORPUSCULAR VOLUME 98 fL (82-100); MONOCYTES # (AUTO) 1.6 K/uL (0.1-1.30); MONOCYTES % (AUTO) 5.1 % (2.0-12.0); NEUTROPHILS # (AUTO) 10.4 K/uL (1.8-8.9); NEUTROPHILS % (AUTO) 32.2 % (43.0-81.0); PLATELET COUNT (AUTO) 337 K/uL (150-450); RED BLOOD CELL COUNT(AUTO) 2.51 MIL/uL (4.0-5.2)
[2021-01-25 07:20] LABS: WHITE BLOOD COUNT (AUTO) 32.3 K/uL (4.3-11.0)
[2021-01-25] MEDS: GLUCERNA SHAKE 237 ML CAN PO SCH ×2 (08:00→17:00)
[2021-01-25] MEDS: ASPIRIN 81 MG TAB.CHEW PO SCH (08:40)
[2021-01-25] MEDS: MORPHINE SULFATE INJ 2 MG/ML DISP.SYRIN IV PRN ×2 (08:41→22:12)
[2021-01-25 09:25] LABS: LYMPHOCYTES % (MANUAL) 64 % (16-48); MONOCYTES % (MANUAL) 3 % (0-11.0); NEUTROPHILS % (MANUAL) 33 (42-76)
[2021-01-25] MEDS: CEFTRIAXONE 2 G in IV D5W 100 ML IV SCH (11:25)
--- NOTE | 2021-01-25 16:59 | NUR ---
MS RN NOTE PATIENT SEEN BY DR. SANCHEZ. PATIENT AGREED TO DO BONE MARROW BIOPSY TOMORROW BUT SAID SHE WANTS TO WAIT FOR TOMORROW TO ASK HER PRIMARY PHYSICIAN IF HE IS OKAY WITH IT. WILL ENDORSE ACCORDINGLY.
--- NOTE | 2021-01-25 17:00 | NUR ---
MS RN NOTE REFUSED GLUCERNA, FAMILY BROUGHT FOOD FOR PATIENT, SHE SAID SHE IS ALREADY FULL. PATIENT ALSO ASKED FOR STOOL SOFTENER BUT DOES NOT WANT TO TAKE MILK OF MAGNESIA. SHE SAID SHE'S GOING TO 'WAIT IT OUT FOR A WHILE" AND WILL ASK FOR IT WHEN SHE REALLY 'NEEDS' IT. HEALTH TEACHING DONE. WILL CONTINUE TO MONITOR PATIENT.
--- NOTE | 2021-01-25 18:58 | NUR ---
MS RN CLOSING NOTE PATIENT ASLEEP IN BED BUT AROUSABLE. PATIENT IS ON OXYGEN AT 2LPM VIA NASAL CANULA SATURATING AT 99%. COMFORT MEASURES PROVIDED. PATIENT WITH IV ACCESS ON LEFT AC G 18 ON SALINE LOCK. COMFORT MEASURES PROVIDED. PATIENT WITH LEFT PLEURAL SPACE PIGTAIL WITH SERO SANGUINOUS DRAINAGE. SAFETY MEASURES ENSURED WITH BED ON LOCKED AND AT LOWEST POSITION. SIDERAILS RAISED WITH CALL LIGHT AND BEDSIDE TABLE WITHIN REACH AT ALL TIMES. WILL ENDORSE PATIENT FOR CONTINUITY OF CARE.
--- NOTE | 2021-01-25 19:00 | NUR ---
MS RN OPENING NOTE RECEIVED PT IN BED, RESTING A/O X4, PT STABLE ON ROOM AIR. NO S/S OF RESPIRATORY DISTRESS. NO C/O PAIN AT THIS TIME. IV ACCESS IN RIGHT FOREARM G #22 SL. IV IS INTACT, PATENT, AND FLUSHING WELL. LEFT PLEURAL PIGTAIL DRAINING SEROSANGUINEOUS FLUID NOTED. SAFETY MEASURES MAINTAINED AT ALL TIMES. BED IN LOWEST LOCKED POSITION, HOB ELEVATED, SIDE RAILS UP X2. CALL LIGHT AND TABLE WITHIN REACH. WILL CONTINUE WITH PLAN OF CARE.
[2021-01-25 20:28] VITALS: BP 145/65
--- NOTE | 2021-01-25 22:03 | NUR ---
BS 254, 6 UNITS OF INSULIN GIVEN PER SLIDING SCALE.
--- NOTE | 2021-01-25 22:12 | NUR ---
PT C/O 8/10 ACHING PAIN, PER PT REQUEST, MORPHINE 4MG/2ML IV Q4H PRN ADMINISTERED AT THIS TIME PER ORDER. WILL CONTINUE TO MONITOR.
[2021-01-26] MEDS: BLOOD SUGAR DIAGNOSTIC 1 EACH STRIP IN SCH ×4 (05:16→21:36)
[2021-01-26] MEDS: INSULIN REGULAR, HUMAN 100 UNIT/ML 3 ML VIAL SQ PRN ×4 (05:21→21:40)
[2021-01-26 05:52] LABS: BASOPHILS % (AUTO) 0.1 % (0.0-2.0); EOSINOPHILS % (AUTO) 0.1 % (0.0-6.0); HEMATOCRIT 23 % (33-45); HEMOGLOBIN 7.3 g/dL (11.5-14.8); LYMPHOCYTES # (AUTO) 18.5 K/uL (0.8-4.8); LYMPHOCYTES % (AUTO) 61.3 % (20.0-44.0); MEAN CORPUSCULAR HGB CONC 32 g/dl (31.0-36.0); MEAN CORPUSCULAR VOLUME 97 fL (82-100); MONOCYTES # (AUTO) 1.5 K/uL (0.1-1.30); MONOCYTES % (AUTO) 5.1 % (2.0-12.0); NEUTROPHILS # (AUTO) 10.1 K/uL (1.8-8.9); NEUTROPHILS % (AUTO) 33.4 % (43.0-81.0); PLATELET COUNT (AUTO) 343 K/uL (150-450); RED BLOOD CELL COUNT(AUTO) 2.33 MIL/uL (4.0-5.2)
--- NOTE | 2021-01-26 06:30 | NUR ---
MS RN CLOSING NOTE PT AWAKE AND RESTING IN BED, STABLE ON 2L OXYGEN VIA NC. PT REMAINED STABLE THROUGHOUT SHIFT. ALL NEEDS, MEDICATIONS, AND CARE ADMINISTERED ANTICIPATED PER ORDER; PAIN CONTROL ADMINISTERED PER ORDER SAFETY PRECAUTIONS IN PLACE AND MAINTAINED AT ALL TIMES. BED IN LOWEST, LOCKED POSITION, HOB ELEVATED, SIDE RAILS UP X2. CALL LIGHT AND TABLE WITHIN REACH. WILL ENDORSE TO AM SHIFT NURSE FOR FARAZ.
[2021-01-26 06:37] LABS: WHITE BLOOD COUNT (AUTO) 30.2 K/uL (4.3-11.0)
--- NOTE | 2021-01-26 06:46 | NUR ---
LAB CALLED STATING THAT PT'S WBC IS 30.2. WILL ENDORSE TO ONCOMING NURSE Addendum: 01/26/21 at 704 by DONNELL HOWARD RN WBC PREVIOUSLY HIGH YESTERDAY BUT TRENDING DOWN. BRAEDEN LANDAVERDE NOTIFDUNIA, WILL F/UP. Addendum: 01/26/21 at 705 by DONNELL HOWARD RN WBC PREVIOUSLY HIGH YESTERDAY BUT TRENDING DOWN. PT ON ANTIBIOTICS, BRAEDEN LANDAVERDE NOTIFDUNIA, WILL CONTINUE WITH F/UP
[2021-01-26 07:01] LABS: BILIRUBIN,TOTAL 1.1 mg/dL (0.2-1.0); CALCIUM, SERUM 8.2 mg/dL (8.5-10.1); CREATININE 0.8 mg/dL (0.6-1.3); PHOSPHORUS 3.3 mg/dL (2.5-4.9); POTASSIUM 3.7 mmol/L (3.5-5.1); TOTAL PROTEIN, SERUM 6.1 g/dL (6.4-8.2)
--- NOTE | 2021-01-26 07:25 | NUR ---
MS RN OPENING NOTE RECEIVED PATIENT RESTING IN BED . PATIENT IS BREATHING EVENLY AND NONLABORED ON OXYGEN AT 2LPM VIA NASAL CANULA SATURATING AT 99%. NO SIGNS OF DISTRESS NOTED. PATIENT WITH IV ACCESS ON LEFT AC G 18 ON SALINE LOCK. COMFORT MEASURES PROVIDED. PATIENT HAS LEFT PLEURAL SPACE PIGTAIL WITH SERO SANGUINOUS DRAINAGE. SAFETY MEASURES ENSURED WITH BED ON LOCKED AND AT LOWEST POSITION. SIDERAILS RAISED WITH CALL LIGHT AND BEDSIDE TABLE WITHIN REACH AT ALL TIMES. WILL CONTINUE TO MONITOR
[2021-01-26] MEDS: GLUCERNA SHAKE 237 ML CAN PO SCH ×2 (08:15→16:02)
[2021-01-26] MEDS: ASPIRIN 81 MG TAB.CHEW PO SCH (08:15)
[2021-01-26 08:32] VITALS: BP 179/98
[2021-01-26] MEDS: CEFTRIAXONE 2 G in IV D5W 100 ML IV SCH (10:00)
[2021-01-26 11:04] LABS: LYMPHOCYTES % (MANUAL) 77 % (16-48); NEUTROPHILS % (MANUAL) 23 (42-76)
[2021-01-26] MEDS ORDERED: MISCELLANEOUS MED 1 EA EA XX ONE (16:00)
--- NOTE | 2021-01-26 16:10 | NUR ---
RN NOTE PATIENT COMPLAINED OF PAIN IN HER BACK AREA. PATIENT ASKED FOR PRN PAIN MEDICATION, VITALS WNL, WILL GIVE PRN PAIN MEDICATION. PATIENT WAS NOTED WITH TEMP 101.1, COOLING MEASURES IMPLEMENTED, WILL RECHECK IN 30 MIN.
[2021-01-26 16:14] VITALS: BP 185/109
[2021-01-26] MEDS: HYDROCODONE/APAP 5/325MG TABLET PO PRN ×2 (16:16→20:22)
[2021-01-26] MEDS ORDERED: SODIUM CHLORIDE XX ONE (16:30)
[2021-01-26] MEDS ORDERED: ALTEPLASE XX ONE (16:30)
[2021-01-26 16:55] VITALS: BP 146/66
[2021-01-26] MEDS ORDERED: LIDOCAINE 0.5% HCL 50 ML VIAL IJ ONE (17:00)
--- NOTE | 2021-01-26 18:34 | NUR ---
MS RN CLOSING NOTE PATIENT RESTING IN BED . PATIENT IS BREATHING EVENLY AND NONLABORED ON OXYGEN AT 2LPM VIA NASAL CANULA SATURATING AT 99%. NO SIGNS OF DISTRESS NOTED. PATIENT WITH IV ACCESS ON LEFT AC G 18 ON SALINE LOCK. COMFORT MEASURES PROVIDED. PATIENT HAS LEFT PLEURAL SPACE PIGTAIL WITH SERO SANGUINOUS DRAINAGE. ALL MEDICATIONS HAVE BEEN GIVEN, SAFETY MEASURES ENSURED WITH BED ON LOCKED AND AT LOWEST POSITION. SIDERAILS RAISED WITH CALL LIGHT AND BEDSIDE TABLE WITHIN REACH AT ALL TIMES. WILL ENDORSE TO ONCOMING SHIFT
[2021-01-26 20:00] VITALS: BP 166/74
--- NOTE | 2021-01-26 20:40 | NUR ---
IN BED PIGTAIL LEFT PLEURAL DRAIN OFF AT THIS TIME WILL BE OPENED AT 10 PM TO DRAIN THIS EVENING ALERT AND ORIENTATED X4 MOVES ABOUT IN BED INDEPENDENTLI
--- NOTE | 2021-01-26 22:00 | NUR ---
PLEURAL DRAIN PIGTAIL OPENED FOR DRAINAGE ACTIVATED THE DRAINAGE SYSTEM BLOOD DRAINAGE STARTED
[2021-01-27] MEDS: HYDROCODONE/APAP 5/325MG TABLET PO PRN ×5 (02:55→23:28)
--- NOTE | 2021-01-27 05:09 | NUR ---
ALERT AND ORIENTATED X4 MEDICATED X2 WITH NORCO TABS 1 FOR PAIN D/T PLEURAL DRAIN DRAINAGE BAG OPENED AND ACITVATED AT 2200 AND BLOODY DRAINAGE 300 ML THIS 12 HOURS REPOSITIONS HER SELF IN THE BED NO SOB THIS 12 HOURS
[2021-01-27] MEDS: BLOOD SUGAR DIAGNOSTIC 1 EACH STRIP IN SCH ×4 (05:49→21:23)
[2021-01-27] MEDS: INSULIN REGULAR, HUMAN 100 UNIT/ML 3 ML VIAL SQ PRN ×4 (05:53→21:27)
[2021-01-27 06:10] LABS: BASOPHILS % (AUTO) 0.1 % (0.0-2.0); EOSINOPHILS % (AUTO) 0.2 % (0.0-6.0); HEMATOCRIT 24 % (33-45); HEMOGLOBIN 7.4 g/dL (11.5-14.8); LYMPHOCYTES # (AUTO) 18.7 K/uL (0.8-4.8); LYMPHOCYTES % (AUTO) 58.3 % (20.0-44.0); MEAN CORPUSCULAR HGB CONC 31 g/dl (31.0-36.0); MEAN CORPUSCULAR VOLUME 99 fL (82-100); MONOCYTES # (AUTO) 1.6 K/uL (0.1-1.30); MONOCYTES % (AUTO) 4.9 % (2.0-12.0); NEUTROPHILS # (AUTO) 11.7 K/uL (1.8-8.9); NEUTROPHILS % (AUTO) 36.5 % (43.0-81.0); PLATELET COUNT (AUTO) 371 K/uL (150-450); RED BLOOD CELL COUNT(AUTO) 2.37 MIL/uL (4.0-5.2)
[2021-01-27 07:01] LABS: BILIRUBIN,TOTAL 0.9 mg/dL (0.2-1.0); CALCIUM, SERUM 8.4 mg/dL (8.5-10.1); CREATININE 0.9 mg/dL (0.6-1.3); MAGNESIUM 2.1 mg/dL (1.8-2.4); PHOSPHORUS 4.1 mg/dL (2.5-4.9); POTASSIUM 3.7 mmol/L (3.5-5.1); TOTAL PROTEIN, SERUM 6.2 g/dL (6.4-8.2)
--- NOTE | 2021-01-27 07:11 | NUR ---
MS RN OPENING NOTE RECEIVED PATIENT RESTING IN BED . PATIENT IS BREATHING EVENLY AND NONLABORED ON OXYGEN AT 2LPM VIA NASAL CANULA SATURATING AT 99%. NO SIGNS OF DISTRESS NOTED. PATIENT WITH IV ACCESS ON LEFT AC G 18 ON SALINE LOCK. COMFORT MEASURES PROVIDED. PATIENT HAS LEFT PLEURAL SPACE PIGTAIL WITH SERO SANGUINOUS DRAINAGE, WAS ENDORSED ABOUT 300 ML LAST NIGHT. SAFETY MEASURES ENSURED WITH BED ON LOCKED AND AT LOWEST POSITION. SIDERAILS RAISED WITH CALL LIGHT AND BEDSIDE TABLE WITHIN REACH AT ALL TIMES. WILL CONTINUE TO MONITOR
[2021-01-27 07:41] LABS: WHITE BLOOD COUNT (AUTO) 32.1 K/uL (4.3-11.0)
[2021-01-27 08:00] VITALS: BP 133/61
[2021-01-27] MEDS: PANTOPRAZOLE 40 MG TABLET.DR PO SCH (08:07)
[2021-01-27] MEDS: AMLODIPINE BESYLATE 10 MG TABLET PO SCH (08:07)
[2021-01-27] MEDS: ASPIRIN 81 MG TAB.CHEW PO SCH (08:07)
[2021-01-27] MEDS: LOSARTAN POTASSIUM 25 MG TABLET PO SCH (08:08)
[2021-01-27] MEDS: HYDROCHLOROTHIAZIDE 25 MG TABLET PO SCH (08:08)
[2021-01-27] MEDS: GLUCERNA SHAKE 237 ML CAN PO SCH ×2 (08:10→16:28)
[2021-01-27 10:21] LABS: LYMPHOCYTES % (MANUAL) 64 % (16-48); MONOCYTES % (MANUAL) 2 % (0-11.0); NEUTROPHILS % (MANUAL) 32 (42-76); REACTIVE LYMPHOCYTES 2 % (0-0)
[2021-01-27] MEDS: CEFTRIAXONE 2 G in IV D5W 100 ML IV SCH (10:34)
--- NOTE | 2021-01-27 15:25 | NUR ---
RN NOTE PATIENT COMPLAINED OF PAIN IN HER BACK AREA. PATIENT ASKED FOR PRN PAIN MEDICATION, VITALS WNL, WILL GIVE PRN PAIN MEDICATION.
[2021-01-27 16:00] VITALS: BP 140/73
--- NOTE | 2021-01-27 18:25 | NUR ---
MS RN CLOSING NOTE PATIENT RESTING IN BED . PATIENT IS BREATHING EVENLY AND NONLABORED ON OXYGEN AT 2LPM VIA NASAL CANULA SATURATING AT 99%. NO SIGNS OF DISTRESS NOTED. PATIENT WITH IV ACCESS ON LEFT AC G 18 ON SALINE LOCK. COMFORT MEASURES PROVIDED. PATIENT HAS LEFT PLEURAL SPACE PIGTAIL WITH SEROUSDRAINAGE 150ML DURING THE SHIFT. ALL MEDICATIONS HAVE BEEN GIVEN, SAFETY MEASURES ENSURED WITH BED ON LOCKED AND AT LOWEST POSITION. SIDERAILS RAISED WITH CALL LIGHT AND BEDSIDE TABLE WITHIN REACH AT ALL TIMES. WILL ENDORSE TO ONCOMING SHIFT
--- NOTE | 2021-01-27 19:25 | NUR ---
MS RN OPENING NOTES RECEIVED PT IN BED,AWAKE, WATCHING TV. AOx4. ABLE TO MAKE NEEDS KNOWN. ON 2L/MIN NASAL CANNULA AND TOLERATING WELL. NO SOB NOTED. NO S/SX OF RESPIRATORY DISTRESS NOTED. IV ACCESS IN RFA #18. IV IS INTACT, PATENT, AND FLUSHING WELL. COMPLAINTS OF 7/10 PAIN AT THIS TIME. PIGTAIL DRAINAGE INTACT DRAINING SANGUINEOUS FLUID. SAFETY PRECAUTIONS IN PLACE: BED IN LOWEST, LOCKED POSITION, BRAKES ON, AND SIDERAILS UPx2. CALL LIGHT AND TABLE WITHIN REACH. WILL CONTINUE TO MONITOR. Addendum: 01/28/21 at 0132 by ALEXANDRIA SEPULVEDA RN PIGTAIL IS DRAINING SEROSANGUINEOUS FLUID.
--- NOTE | 2021-01-27 19:31 | NUR ---
ADMINISTERED NORCO FOR PAIN PER MD ORDER. VS WNL. WILL CONTINUE TO MONITOR.
[2021-01-27 20:00] VITALS: BP 142/76
--- NOTE | 2021-01-27 23:29 | NUR ---
ADMINISTERED NORCO FOR PAIN PER MD ORDER. VS WNL. WILL CONTINUE TO MONITOR.
[2021-01-28] MEDS: HYDROCODONE/APAP 5/325MG TABLET PO PRN ×3 (03:37→21:46)
--- NOTE | 2021-01-28 03:37 | NUR ---
ADMINISTERED NORCO FOR PAIN PER MD ORDER. VS WNL. WILL CONTINUE TO MONITOR.
[2021-01-28] MEDS: BLOOD SUGAR DIAGNOSTIC 1 EACH STRIP IN SCH ×4 (06:00→21:38)
[2021-01-28] MEDS: INSULIN REGULAR, HUMAN 100 UNIT/ML 3 ML VIAL SQ PRN ×4 (06:17→21:41)
[2021-01-28] MEDS: MORPHINE SULFATE INJ 2 MG/ML DISP.SYRIN IV PRN (06:24)
--- NOTE | 2021-01-28 06:24 | NUR ---
ADMINISTERED MORPHINE FOR PAIN PER MD ORDER. VS WNL. WILL CONTINUE TO MONITOR.
--- NOTE | 2021-01-28 06:59 | NUR ---
MS RALEIGH OPENING NOTES PT IN BED, AWAKE. AOx4. ABLE TO MAKE NEEDS KNOWN. ON 2L/MIN NASAL CANNULA AND TOLERATING WELL. NO SOB NOTED. NO S/SX OF RESPIRATORY DISTRESS NOTED. IV ACCESS IN RFA #18. IV IS INTACT, PATENT, AND FLUSHING WELL. TREATED PAIN THROUGHOUT SHIFT. ALL NEEDS MET. PT KEPT CLEAN AND DRY. PIGTAIL DRAINAGE INTACT DRAINING SEROSANGUINEOUS FLUID- 150 ML. SAFETY PRECAUTIONS IN PLACE: BED IN LOWEST, LOCKED POSITION, BRAKES ON, AND SIDERAILS UPx2. CALL LIGHT AND TABLE WITHIN REACH. WILL ENDORSE TO ONCOMING SHIFT. Addendum: 01/28/21 at 0701 by ALEXANDRIA SEPULVEDA RN MS STOREY CLOSING NOTES
--- NOTE | 2021-01-28 07:30 | NUR ---
MS RN OPENING NOTES RECEIVED PATIENT ON BED, AWAKE AND A/O X4. ON O2 AT 2LPM VIA NASAL CANNULA, TOLERATING WELL. NO SOB NOTED. NOT IN DISTRESS. WITH NO COMPLAINTS OF PAIN AT THIS TIME. WITH IV ACCESS AT RIGHT HAND G22, SALINE LOCKED, PATENT AND INTACT. WITH PIGTAIL DRAINAGE INTACT DRAINING 150ML. SAFETY MEASURES IN PLACE. CALL LIGHT WITHIN REACH. BED ON LOWEST AND LOCKED POSITION, SIDE RAILS UP X2. WILL CONTINUE TO MONITOR.
[2021-01-28 08:00] VITALS: BP 133/67
[2021-01-28] MEDS: LOSARTAN POTASSIUM 25 MG TABLET PO SCH (08:33)
[2021-01-28] MEDS: HYDROCHLOROTHIAZIDE 25 MG TABLET PO SCH (08:33)
[2021-01-28] MEDS: PANTOPRAZOLE 40 MG TABLET.DR PO SCH (08:33)
[2021-01-28] MEDS: ASPIRIN 81 MG TAB.CHEW PO SCH (08:33)
[2021-01-28] MEDS: AMLODIPINE BESYLATE 10 MG TABLET PO SCH (08:34)
[2021-01-28] MEDS: GLUCERNA SHAKE 237 ML CAN PO SCH ×2 (08:34→17:23)
[2021-01-28 09:38] LABS: BASOPHILS # (AUTO) 0.1 K/uL (0.0-0.2); BASOPHILS % (AUTO) 0.2 % (0.0-2.0); EOSINOPHILS % (AUTO) 0.2 % (0.0-6.0); HEMATOCRIT 23 % (33-45); HEMOGLOBIN 7.1 g/dL (11.5-14.8); LYMPHOCYTES # (AUTO) 18.9 K/uL (0.8-4.8); LYMPHOCYTES % (AUTO) 59.1 % (20.0-44.0); MEAN CORPUSCULAR HGB CONC 32 g/dl (31.0-36.0); MEAN CORPUSCULAR VOLUME 99 fL (82-100); MONOCYTES # (AUTO) 1.3 K/uL (0.1-1.30); MONOCYTES % (AUTO) 4.1 % (2.0-12.0); NEUTROPHILS # (AUTO) 11.6 K/uL (1.8-8.9); NEUTROPHILS % (AUTO) 36.4 % (43.0-81.0); PLATELET COUNT (AUTO) 413 K/uL (150-450); RED BLOOD CELL COUNT(AUTO) 2.29 MIL/uL (4.0-5.2)
[2021-01-28] MEDS: CEFTRIAXONE 2 G in IV D5W 100 ML IV SCH (10:14)
[2021-01-28] MEDS ORDERED: HYDROMORPHONE MDV 2 MG in IV D5W 50 ML IV PRN (11:00)
[2021-01-28] MEDS: HYDROMORPHONE INJ 2 MG/ML DISP.SYRIN IV PRN (12:50)
[2021-01-28 13:27] LABS: LYMPHOCYTES % (MANUAL) 57 % (16-48); MONOCYTES % (MANUAL) 5 % (0-11.0); MYELOCYTES % 1 % (0-0); NEUTROPHILS % (MANUAL) 37 (42-76)
[2021-01-28 16:00] VITALS: BP 135/59
[2021-01-28] MEDS: ONDANSETRON HCL/PF 4 MG/2 ML VIAL IVP PRN (16:14)
--- NOTE | 2021-01-28 18:53 | NUR ---
MS RN CLOSING NOTES PATIENT ON BED, AWAKE AND A/O X4. ON O2 AT 2LPM VIA NASAL CANNULA, TOLERATING WELL. NO SOB NOTED. NOT IN DISTRESS. WITH NO COMPLAINTS OF PAIN AT THIS TIME. WITH IV ACCESS AT RIGHT FOREARM G20, SALINE LOCKED, PATENT AND INTACT. WITH PIGTAIL DRAINAGE INTACT DRAINING 100ML. SAFETY MEASURES IN PLACE. CALL LIGHT WITHIN REACH. BED ON LOWEST AND LOCKED POSITION, SIDE RAILS UP X2. WILL ENDORSE TO NEXT SHIFT FOR FAR[facility].
--- NOTE | 2021-01-28 19:30 | NUR ---
MS RN NOTES RECEIVED ON BED A/O X4,WITH HOB ELEVATED,BREATHING NON LABORED,O2 2L/NC IN USED ON AND OFF,WITH LEFT UPPER BACK PLEURAL PIGTAIL DRAINING BROWNISH OUTPUT.NOTED MOANS BUT PAIN IS TOLERABLE ACCORDING TO PATIENT.ASSIST WITH ADL'S.CALL LIGHT IN REACH,NEEDS ANTICIPATED.
[2021-01-28 20:00] VITALS: BP 135/58
--- NOTE | 2021-01-28 21:46 | NUR ---
MS RN NOTES PAIN MANAGEMENT C/O PAIN ON LEFT UPPER BACK,NORCO 5/325MG,1 TAB PO GIVEN ORDERED FOR MODERATE PAIN
--- NOTE | 2021-01-28 22:00 | NUR ---
MS RN NOTES ACCU-CHECK BLOOD SUGAR CHECK 224,COVERED WITH HUMULIN R 4 UNITS PER SLIDING SCALE.
[2021-01-29] VITALS (10 sets, daily range): BP systolic 112–153; BP diastolic 47–64
[2021-01-29] MEDS: HYDROCODONE/APAP 5/325MG TABLET PO PRN (03:13)
--- NOTE | 2021-01-29 03:13 | NUR ---
MS RN NOTES MOANS IN PAIN,MEDICATED WITH NORCO 5/325MG,1 TAB PO GIVEN ORDERED FOR MODERATE PAIN.
--- NOTE | 2021-01-29 05:45 | NUR ---
MS RN NOTES ACCU-CHECK BLOOD SUGAR CHECK 148COVERED WITH HUMULIN R 2 UNITS PER SLIDING SCALE.
[2021-01-29] MEDS: BLOOD SUGAR DIAGNOSTIC 1 EACH STRIP IN SCH ×4 (05:46→21:40)
[2021-01-29] MEDS: INSULIN REGULAR, HUMAN 100 UNIT/ML 3 ML VIAL SQ PRN ×4 (05:54→21:47)
[2021-01-29] MEDS: HYDROMORPHONE INJ 2 MG/ML DISP.SYRIN IV PRN ×2 (05:55→14:52)
--- NOTE | 2021-01-29 05:55 | NUR ---
MS RN NOTES MOANS IN PAIN 9/10 ON BED SCALE,MEDICATED WITH DILAUDID 2MG IV ORDERED.ADVISED NOT TO GET OUT OF BED WHILE ON PAIN MEDICATION FOR SAFETY.
[2021-01-29 06:07] LABS: BASOPHILS % (AUTO) 0.1 % (0.0-2.0); EOSINOPHILS % (AUTO) 0.2 % (0.0-6.0); HEMATOCRIT 21 % (33-45); LYMPHOCYTES # (AUTO) 17.3 K/uL (0.8-4.8); LYMPHOCYTES % (AUTO) 60.1 % (20.0-44.0); MEAN CORPUSCULAR HGB CONC 32 g/dl (31.0-36.0); MEAN CORPUSCULAR VOLUME 98 fL (82-100); MONOCYTES % (AUTO) 3.3 % (2.0-12.0); NEUTROPHILS # (AUTO) 10.5 K/uL (1.8-8.9); NEUTROPHILS % (AUTO) 36.3 % (43.0-81.0); PLATELET COUNT (AUTO) 402 K/uL (150-450); RED BLOOD CELL COUNT(AUTO) 2.15 MIL/uL (4.0-5.2); WHITE BLOOD COUNT (AUTO) 28.8 K/uL (4.3-11.0)
--- NOTE | 2021-01-29 06:43 | NUR ---
MS RN NOTES ASLEEP THIS TIME,PAIN MANAGEMENT EFFECTIVE,PIGTAIL CATHETER IN PLACE DRAINS 100ML SERO SANGUINOUS OUTPUT.O2 SAT 93% ON ROOM AIR.IN NO ACUTE DISTRESS.WILL ENDORSE TO DAY NURSE FOR FARAZ.
--- NOTE | 2021-01-29 07:32 | NUR ---
MS/RN OPENING NOTES RECEIVED PATIENT ON BED AWAKE ALERT AND ORIENTED X 4. PATIENT IS ON 2L OXYGEN VIA NASAL CANNULA. PATIENT IN NO APPARENT RESPIRATORY DISTRESS NOTED. NO COMPLAINED OF PAIN NOTED AT THIS TIME. WILL CONTINUE TO MONITOR.
[2021-01-29] MEDS: PANTOPRAZOLE 40 MG TABLET.DR PO SCH (07:37)
[2021-01-29 07:52] LABS: HEMOGLOBIN 6.6 g/dL (11.5-14.8)
--- NOTE | 2021-01-29 08:04 | NUR ---
RN NOTES RELAY LABORATORY RESULT TO DR. LOPEZ HGB 6.[address] LOPEZ ORDER 1 UNIT PRBC STAT. NOTED AND CARRIED OUT.
[2021-01-29] MEDS: ASPIRIN 81 MG TAB.CHEW PO SCH (08:58)
[2021-01-29] MEDS: LOSARTAN POTASSIUM 25 MG TABLET PO SCH (08:58)
[2021-01-29] MEDS: AMLODIPINE BESYLATE 10 MG TABLET PO SCH (08:58)
[2021-01-29] MEDS: HYDROCHLOROTHIAZIDE 25 MG TABLET PO SCH (08:59)
[2021-01-29] MEDS: GLUCERNA SHAKE 237 ML CAN PO SCH ×2 (09:16→17:39)
[2021-01-29 09:42] LABS: LYMPHOCYTES % (MANUAL) 59 % (16-48); MONOCYTES % (MANUAL) 3 % (0-11.0); NEUTROPHILS % (MANUAL) 38 (42-76)
[2021-01-29] MEDS: CEFTRIAXONE 2 G in IV D5W 100 ML IV SCH (11:41)
--- NOTE | 2021-01-29 18:51 | NUR ---
MS/RN CLOSING NOTES PATIENT IS ON BED ALERT AND ORIENTED X 4. PATIENT IS ON AND OFF. PATIENT IS ON 2L OXYGEN VIA NASAL CANNULA AT THIS TIME. PATIENT IN NO APPARENT RESPIRATORY DISTRESS NOTED. IV ACCESS AT RIGHT FOREARM #20 G PATENT AND INTACT. SEEN AND EXAMINED BY MD WITH ORDERS MADE AND CARRIED OUT. ALL DUE MEDICATIONS WAS GIVEN. SAFETY PRECAUTIONS WAS IN PLACED. BED IN LOWEST POSITION AND LOCKED. SIDERAILS UP X2. CALL LIGHT WITHIN IN REACH. 1 PRBC WAS GIVEN NO BLOOD TRANSFUSION REACTION WAS NOTED ALL TROUGH OUT THE TRANSFUSION VITAL SIGN TAKEN AND RECORDED. WILL ENDORSED TO SOFTWARE ARCHITECT RN FOR FARAZ.
--- NOTE | 2021-01-29 19:30 | NUR ---
MS RN NOTES RECEIVED LAYING ON BED A/O X4,BREATHING NON LABORED,O2 USED 2L/NC ON AND OFF,O2 SAT 94%,PIGTAIL LEFT UPPER BACK INTACT,CONNECTED TO PLEURO VAC DRAIN SANGUINOUS OUTPUT.SALINE LOCK RIGHT ARM INTACT AND PATENT.ASSIST WITH ADL'S,MONITOR FOR PAIN,CALL LIGHT IN REACH,NEEDS ANTICIPATED.
--- NOTE | 2021-01-29 22:00 | NUR ---
MS RN NOTES ACCU-CHECK BLOOD SUGAR CHECK 199,COVERED WITH HUMULIN R 3 UNITS GIVEN SQ PER SLIDING SCALE.
--- NOTE | 2021-01-30 05:45 | NUR ---
MS RN NOTES ACCU-CHECK BLOOD SUGAR CHECK 154,COVERED WITH HUMULIN R 2 UNITS PER SLIDING SCALE.
[2021-01-30] MEDS: INSULIN REGULAR, HUMAN 100 UNIT/ML 3 ML VIAL SQ PRN ×4 (05:48→21:59)
--- NOTE | 2021-01-30 06:35 | NUR ---
MS RN NOTES MORNING CARE RENDERED WITH CALVIN ANTONIO,NO SOB NOTED.PLEURO VAC WITH 100ML SERO SANGUIINOUS OUTPUT.STILL MOANS AT TIMES,OFFERED PAIN MEDICINE BUT REFUSED.CALL LIGHT IN REACH,NEEDS ATTENDED.
--- NOTE | 2021-01-30 07:30 | NUR ---
MS RN OPENING NOTES RECEIVED PATIENT ON BED, RESTING AND A/O X4. ON O2 AT 2LPM VIA NASAL CANNULA WITH O2 SAT AT 99%. WITH PIGTAIL AT LEFT UPPER BACK, INTACT AND CONNECTED TO PLEURO VAC DRAINING SANGUINOUS OUTPUT AT LEVEL 400ML. WITH NO COMPLAINTS OF PAIN AT THIS TIME. WITH IV ACCESS AT LEFT UPPER ARM G20, SALINE LOCKED, INTACT AND PATENT. SAFETY MEASURES IN PLACE. CALL LIGHT WITHIN REACH. BED ON LOWEST AND LOCKED POSITION, SIDE RAILS UP X2. WILL CONTINUE TO MONITOR.
[2021-01-30] MEDS: BLOOD SUGAR DIAGNOSTIC 1 EACH STRIP IN SCH ×4 (07:55→22:05)
[2021-01-30 08:00] VITALS: BP 155/65
[2021-01-30] MEDS: ASPIRIN 81 MG TAB.CHEW PO SCH (08:02)
[2021-01-30] MEDS: LOSARTAN POTASSIUM 25 MG TABLET PO SCH (08:02)
[2021-01-30] MEDS: HYDROCHLOROTHIAZIDE 25 MG TABLET PO SCH (08:03)
[2021-01-30] MEDS: PANTOPRAZOLE 40 MG TABLET.DR PO SCH (08:03)
[2021-01-30] MEDS: AMLODIPINE BESYLATE 10 MG TABLET PO SCH (08:03)
[2021-01-30] MEDS: GLUCERNA SHAKE 237 ML CAN PO SCH ×2 (08:04→17:24)
[2021-01-30] MEDS: HYDROCODONE/APAP 5/325MG TABLET PO PRN ×2 (08:22→16:41)
[2021-01-30 09:42] LABS: EOSINOPHILS % (AUTO) 0.2 % (0.0-6.0); HEMATOCRIT 26 % (33-45); HEMOGLOBIN 8.3 g/dL (11.5-14.8); LYMPHOCYTES # (AUTO) 15.1 K/uL (0.8-4.8); LYMPHOCYTES % (AUTO) 59.8 % (20.0-44.0); MEAN CORPUSCULAR HGB CONC 32 g/dl (31.0-36.0); MEAN CORPUSCULAR VOLUME 93 fL (82-100); MONOCYTES # (AUTO) 0.9 K/uL (0.1-1.30); MONOCYTES % (AUTO) 3.8 % (2.0-12.0); NEUTROPHILS # (AUTO) 9.1 K/uL (1.8-8.9); NEUTROPHILS % (AUTO) 36.2 % (43.0-81.0); PLATELET COUNT (AUTO) 465 K/uL (150-450); RED BLOOD CELL COUNT(AUTO) 2.78 MIL/uL (4.0-5.2); WHITE BLOOD COUNT (AUTO) 25.2 K/uL (4.3-11.0)
[2021-01-30] MEDS: CEFTRIAXONE 2 G in IV D5W 100 ML IV SCH (11:05)
--- NOTE | 2021-01-30 12:00 | NUR ---
MS STOREY ACCUCHECK BLOOD SUGAR CHECK-241. 4U REGULAR INSULIN GIVEN SQ USING SLIDING SCALE.
[2021-01-30 16:00] VITALS: BP 134/61
--- NOTE | 2021-01-30 18:40 | NUR ---
MS RN CLOSING NOTES PATIENT ON BED, RESTING AND A/O X4. ON ON AND OFF O2 AT 2LPM VIA NASAL CANNULA WITH O2 SAT AT 99%. WITH PIGTAIL AT LEFT UPPER BACK, INTACT AND CONNECTED TO PLEURO VAC DRAINING SANGUINOUS OUTPUT AT 50ML. WITH NO COMPLAINTS OF PAIN AT THIS TIME. WITH IV ACCESS AT LEFT UPPER ARM G20, SALINE LOCKED, INTACT AND PATENT. SAFETY MEASURES IN PLACE. CALL LIGHT WITHIN REACH. BED ON LOWEST AND LOCKED POSITION, SIDE RAILS UP X2. WILL ENDORSE TO NEXT SHIFT FOR FARAZ.
--- NOTE | 2021-01-30 19:22 | NUR ---
MS RN OPENING NOTES Patient is A&Ox4. Denies pain or discomfort. Denies SOB. No signs of distress. Sanguineous output seen to L chest/pleural pigtail drain at 400cc currently. Will reassess at end of shift. Will continue to monitor pt. status.
[2021-01-30 20:00] VITALS: BP 144/62
[2021-01-31] MEDS: HYDROCODONE/APAP 5/325MG TABLET PO PRN (00:44)
--- NOTE | 2021-01-31 06:25 | NUR ---
MS RN CLOSING NOTES Patient is A&Ox4. VSS. C/o L chest/rib/lung pain x1 this shift. relief felt from norco. No hyper or hypoglycemic reactions noted. No overnight events. very minimal 15cc output to pigtail drain overnight -sanguineous.
[2021-01-31] MEDS: INSULIN REGULAR, HUMAN 100 UNIT/ML 3 ML VIAL SQ PRN ×4 (06:55→21:55)
[2021-01-31] MEDS: BLOOD SUGAR DIAGNOSTIC 1 EACH STRIP IN SCH ×4 (07:04→21:55)
--- NOTE | 2021-01-31 07:30 | NUR ---
MS RN OPENING NOTES RECEIVED PATIENT ON BED, RESTING AND A/O X4. ON O2 AT 2LPM VIA NASAL CANNULA WITH O2- ON AND OFF. WITH PIGTAIL AT LEFT UPPER BACK, INTACT AND CONNECTED TO PLEURO VAC. WITH NO COMPLAINTS OF PAIN AT THIS TIME. WITH IV ACCESS AT LEFT UPPER ARM G20, SALINE LOCKED, INTACT AND PATENT. SAFETY MEASURES IN PLACE. CALL LIGHT WITHIN REACH. BED ON LOWEST AND LOCKED POSITION, SIDE RAILS UP X2. WILL CONTINUE TO MONITOR.
[2021-01-31 08:00] VITALS: BP 145/60
[2021-01-31] MEDS: LOSARTAN POTASSIUM 25 MG TABLET PO SCH (09:05)
[2021-01-31] MEDS: ASPIRIN 81 MG TAB.CHEW PO SCH (09:05)
[2021-01-31] MEDS: AMLODIPINE BESYLATE 10 MG TABLET PO SCH (09:05)
[2021-01-31] MEDS: HYDROCHLOROTHIAZIDE 25 MG TABLET PO SCH (09:06)
[2021-01-31] MEDS: PANTOPRAZOLE 40 MG TABLET.DR PO SCH (09:06)
[2021-01-31] MEDS: GLUCERNA SHAKE 237 ML CAN PO SCH ×2 (09:07→17:29)
[2021-01-31] MEDS: CEFTRIAXONE 2 G in IV D5W 100 ML IV SCH (10:11)
[2021-01-31 16:05] VITALS: BP 118/63
[2021-01-31] MEDS: ACETAMINOPHEN 325 MG TABLET PO PRN (17:24)
--- NOTE | 2021-01-31 19:15 | NUR ---
MS RN OPENING NOTES: RECEIVED PATIENT IN BED, AWAKE, A/O X4. NO S/S OF DISTRESS NOTED. NO COMPLAIN OF PAIN. CALL LIGHT WITHIN REACH. BED IN LOWEST AND LOCKED POSITION. WITH LEFT FLANK PIGTAIL DRAIN INTACT, DRAINING SEROSANGUINOUS OUTPUT. AMBULATORY.
--- NOTE | 2021-01-31 19:35 | NUR ---
RN OPENING NOTES PATIENT ON BED, RESTING AND A/O X4. ON O2 AT 2LPM VIA NASAL CANNULA WITH O2- ON AND OFF. WITH PIGTAIL AT LEFT UPPER BACK, INTACT AND CONNECTED TO PLEURO VAC. WITH NO COMPLAINTS OF PAIN AT THIS TIME. WITH IV ACCESS AT LEFT HAND G20, SALINE LOCKED, INTACT AND PATENT. SAFETY MEASURES IN PLACE. CALL LIGHT WITHIN REACH. BED ON LOWEST AND LOCKED POSITION, SIDE RAILS UP X2. WILL ENDORSE TO NEXT SHIFT FOR AFRAZ. Addendum: 01/31/21 at 1999 by RASHID COLLINS RN RN CLOSING NOTES
[2021-01-31 19:47] VITALS: BP 143/72
[2021-02-01] MEDS: HYDROCODONE/APAP 5/325MG TABLET PO PRN ×2 (03:02→18:25)
[2021-02-01 06:46] LABS: BASOPHILS % (AUTO) 0.1 % (0.0-2.0); EOSINOPHILS % (AUTO) 0.3 % (0.0-6.0); HEMATOCRIT 25 % (33-45); HEMOGLOBIN 8.1 g/dL (11.5-14.8); LYMPHOCYTES # (AUTO) 15.6 K/uL (0.8-4.8); LYMPHOCYTES % (AUTO) 70.2 % (20.0-44.0); MEAN CORPUSCULAR HGB CONC 32 g/dl (31.0-36.0); MEAN CORPUSCULAR VOLUME 94 fL (82-100); MONOCYTES # (AUTO) 0.9 K/uL (0.1-1.30); MONOCYTES % (AUTO) 3.9 % (2.0-12.0); NEUTROPHILS # (AUTO) 5.7 K/uL (1.8-8.9); NEUTROPHILS % (AUTO) 25.5 % (43.0-81.0); PLATELET COUNT (AUTO) 478 K/uL (150-450); WHITE BLOOD COUNT (AUTO) 22.2 K/uL (4.3-11.0)
[2021-02-01] MEDS: INSULIN REGULAR, HUMAN 100 UNIT/ML 3 ML VIAL SQ PRN ×3 (06:56→21:43)
[2021-02-01] MEDS: BLOOD SUGAR DIAGNOSTIC 1 EACH STRIP IN SCH ×4 (06:57→21:41)
[2021-02-01 07:17] LABS: CALCIUM, SERUM 8.2 mg/dL (8.5-10.1); CREATININE 0.9 mg/dL (0.6-1.3); POTASSIUM 3.7 mmol/L (3.5-5.1)
--- NOTE | 2021-02-01 07:30 | NUR ---
MS RN OPENING NOTES RECEIVED PATIENT ON BED, RESTING AND A/O X4. ON O2 AT 2LPM VIA NASAL CANNULA WITH O2- ON AND OFF. WITH PIGTAIL AT LEFT UPPER BACK, INTACT AND CONNECTED TO PLEURO VAC. WITH NO COMPLAINTS OF PAIN AT THIS TIME. WITH IV ACCESS AT LEFT HAND G22, SALINE LOCKED, INTACT AND PATENT. SAFETY MEASURES IN PLACE. CALL LIGHT WITHIN REACH. BED ON LOWEST AND LOCKED POSITION, SIDE RAILS UP X2. WILL CONTINUE TO MONITOR.
[2021-02-01 08:00] VITALS: BP 136/70
[2021-02-01] MEDS: LOSARTAN POTASSIUM 25 MG TABLET PO SCH (08:32)
[2021-02-01] MEDS: ASPIRIN 81 MG TAB.CHEW PO SCH (08:33)
[2021-02-01] MEDS: HYDROCHLOROTHIAZIDE 25 MG TABLET PO SCH (08:33)
[2021-02-01] MEDS: PANTOPRAZOLE 40 MG TABLET.DR PO SCH (08:33)
[2021-02-01] MEDS: GLUCERNA SHAKE 237 ML CAN PO SCH ×2 (08:33→17:16)
[2021-02-01] MEDS: AMLODIPINE BESYLATE 10 MG TABLET PO SCH (08:33)
[2021-02-01] MEDS: CEFTRIAXONE 2 G in IV D5W 100 ML IV SCH (10:31)
[2021-02-01 16:00] VITALS: BP 140/66
--- NOTE | 2021-02-01 19:01 | NUR ---
MS RN CLOSING NOTES PATIENT ON BED, RESTING AND A/O X4. ON O2 AT 2LPM VIA NASAL CANNULA WITH O2- ON AND OFF. WITH PIGTAIL AT LEFT UPPER BACK, INTACT AND CONNECTED TO PLEURO VAC. WITH IV ACCESS AT LEFT HAND G22, SALINE LOCKED, INTACT AND PATENT. SAFETY MEASURES IN PLACE. CALL LIGHT WITHIN REACH. BED ON LOWEST AND LOCKED POSITION, SIDE RAILS UP X2. WILL ENDORSE TO NEXT SHIFT FOR FARAZ.
--- NOTE | 2021-02-01 19:25 | NUR ---
RN OPENING NOTE PT AWAKE IN BED, A/OX4, ABLE TO VERBALIZE NEEDS. DENIES PAIN/DISCOMFORT AT THIS TIME. ON ROOM AIR AND STEFANI WELL. BREATHING EVEN AND UNLABORED. IV SITE ON LFA G#20 INTACT AND PATENT. PIGTAIL ON LEFT FLANK INTACT CONNECTED TO PLEURA VAC. PT IN NO ACUTE DISTRESS. SAFETY MEASURE IN PLACE: BED IN LOWEST LOCKED POSITION, S/R UP X2, CALL LIGHT WITHIN REACH. WILL CONTINUE TO MONITOR
[2021-02-01 20:00] VITALS: BP 152/74
[2021-02-02] MEDS: HYDROMORPHONE INJ 2 MG/ML DISP.SYRIN IV PRN ×2 (00:01→23:43)
[2021-02-02] MEDS: HYDROCODONE/APAP 5/325MG TABLET PO PRN ×3 (05:17→20:13)
[2021-02-02] MEDS: INSULIN REGULAR, HUMAN 100 UNIT/ML 3 ML VIAL SQ PRN ×4 (06:23→21:39)
[2021-02-02] MEDS: BLOOD SUGAR DIAGNOSTIC 1 EACH STRIP IN SCH ×4 (06:28→21:42)
[2021-02-02 06:48] LABS: IRON, SERUM 25 ug/dl (50-175); TOTAL IRON BINDING CAPACITY 168 ug/dl (250-450)
[2021-02-02 06:53] LABS: FERRITIN 674 ng/mL (8-388)
--- NOTE | 2021-02-02 07:30 | NUR ---
RN CLOSING NOTE PT RESTING IN BED, DENIES PAIN/DISCOMFORT AT THIS TIME. NO SOB. IV SITE ON LFA G#20 INTACT AND PATENT. PIGTAIL ON LEFT FLANK INTACT CONNECTED TO PLEURA VAC. NO FURTHER OUTPUT NOTED. NO ACUTE EVENTS NOTED DURING THE SHIFT. SAFETY MEASURES MAINTAINED, BED IN LOWEST LOCKED POSITION, S/R UP X2, CALL LIGHT WITHIN REACH. ENDORSED TO NEXT SHIFT NURSE.
--- NOTE | 2021-02-02 07:31 | NUR ---
MS RN OPENING NOTES. RECEIVED PT AWAKE IN BED IN NO ACUTE SIGNS OF DISTRESS. A/O X4. ABLE TO MAKE NEEDS KNOWN, DENIES PAIN OR ANY DISCOMFORTS AT THIS TIME. ON ROOM AIR, BREATHING EVEN AND UNLABORED. IV SL ON LFA G#20 INTACT AND PATENT. PIGTAIL ON LEFT FLANK INTACT CONNECTED TO PLEURA VAC. SAFETY MEASURE IN PLACE: BED IN LOWEST LOCKED POSITION WITH SIDE-RAILS UP X2. HOB KEPT ELEVATED. CALL LIGHT WITHIN REACH. WILL CONTINUE TO MONITOR.
[2021-02-02 08:00] VITALS: BP 126/61
[2021-02-02] MEDS: ASPIRIN 81 MG TAB.CHEW PO SCH (08:39)
[2021-02-02] MEDS: HYDROCHLOROTHIAZIDE 25 MG TABLET PO SCH (08:40)
[2021-02-02] MEDS: PANTOPRAZOLE 40 MG TABLET.DR PO SCH (08:40)
[2021-02-02] MEDS: AMLODIPINE BESYLATE 10 MG TABLET PO SCH (08:41)
[2021-02-02] MEDS: LOSARTAN POTASSIUM 25 MG TABLET PO SCH (08:42)
[2021-02-02] MEDS: GLUCERNA SHAKE 237 ML CAN PO SCH ×2 (08:42→17:09)
--- NOTE | 2021-02-02 10:17 | NUR ---
RN NOTES PT SEEN BY DR QUINONES WITH VERBAL ORDER TO TO PLACE 2ND PIGTAIL HIGHER UP FROM IST PIGTAIL TO DRAIN REMAINING POCKETS OF FLUIDS. EXPLAINED TO PT AND VERBALIZED UNDERSTANDING. CALLED CT DEPT, SPOKED TO KARIE WITH ORDER TO PLACE PT ON NPO.
[2021-02-02] MEDS: CEFTRIAXONE 2 G in IV D5W 100 ML IV SCH (11:00)
[2021-02-02 12:53] LABS: BASOPHILS # (AUTO) 0.2 K/uL (0.0-0.2); BASOPHILS % (AUTO) 0.7 % (0.0-2.0); EOSINOPHILS % (AUTO) 0.3 % (0.0-6.0); HEMATOCRIT 28 % (33-45); HEMOGLOBIN 8.7 g/dL (11.5-14.8); LYMPHOCYTES # (AUTO) 15.3 K/uL (0.8-4.8); LYMPHOCYTES % (AUTO) 71.3 % (20.0-44.0); MEAN CORPUSCULAR HGB CONC 32 g/dl (31.0-36.0); MEAN CORPUSCULAR VOLUME 95 fL (82-100); MONOCYTES # (AUTO) 0.7 K/uL (0.1-1.30); MONOCYTES % (AUTO) 3.4 % (2.0-12.0); NEUTROPHILS # (AUTO) 5.2 K/uL (1.8-8.9); NEUTROPHILS % (AUTO) 24.3 % (43.0-81.0); PLATELET COUNT (AUTO) 509 K/uL (150-450); WHITE BLOOD COUNT (AUTO) 21.4 K/uL (4.3-11.0)
[2021-02-02 13:57] LABS: LYMPHOCYTES % (MANUAL) 80 % (16-48); MONOCYTES % (MANUAL) 3 % (0-11.0); NEUTROPHILS % (MANUAL) 17 (42-76)
--- NOTE | 2021-02-02 14:46 | NUR ---
RN NOTES RECEIVED INFORMATION FROM HEAVY EQUIPMENT OPERATOR/PAVER YFN THAT RADIOLOGIST KARIE CALLED AND INFORMED THAT 2ND PIGTAIL PLACEMENT FOR PT WILL NOT BE DONE TODAY BUT THEY WILL DO IT TOMORROW. PT MADE AWARE AND LUNCH TRAY WAS GIVEN.
--- NOTE | 2021-02-02 15:01 | NUR ---
RN NOTES CALLED DR SABAS STOUT 'S OFFICE, SPOKED TO GLASS CUT OFF TENDER AND STATED THAT SHE WILL PAGE AND INFORM DR STOUT. AWAITING FOR RETURN CALL.
[2021-02-02 16:00] VITALS: BP 135/61
--- NOTE | 2021-02-02 16:10 | NUR ---
RN MS NOTES PATIENT NOTED WITH LEFT SHOULDER PAIN WITH PAIN SCALE OF 7/10. NORCO 5/25 TAB. GIVEN PRN DOSE AT 1606. WILL CONTINUE MONITOR PT. AND PLACE PT. IN A COMFORTABLE POSITION
--- NOTE | 2021-02-02 18:40 | NUR ---
MS RN CLOSING NOTES. PT IN BED AWAKE AND WATCHING TV AT THIS TIME. A/O X4. ABLE TO MAKE NEEDS KNOWN. 2ND PIGTAIL PLACEMENT WILL BE DONE TOMORROW PER RADIOLOGIST KARIE, NPO TO BE ENFORCED POST MIDNIGHT, PT IS AWARE. ON ROOM AIR, BREATHING EVEN AND UNLABORED. IV SL ON LFA G#20 INTACT AND PATENT. PIGTAIL ON LEFT FLANK INTACT AND CONNECTED TO PLEURA VAC, NO OUTPUT NOTED DURING SHIFT. ALL NEEDS AND CARE ATTENDED WELL. SAFETY MEASURE IN PLACE: BED IN LOWEST LOCKED POSITION WITH SIDE-RAILS UP X2. HOB KEPT ELEVATED. CALL LIGHT WITHIN REACH. WILL ENDORSE FARAZ TO NIGHT
--- NOTE | 2021-02-02 19:10 | NUR ---
RN OPENING NOTES PT AWAKE IN BED, A/OX4, ABLE TO VERBALIZE NEEDS. SHE DENIES ANY PAIN OR DISCOMFORT AT THIS TIME. RESPIRATIONS EVEN/UNLABORED. DENIES SOB. IV SITE: L-FA #20 INTACT/PATENT/FLUSHES WELL. WITH PIGTAIL CATH ON L-FLANK INTACT, CONNECTED TO PLEURA VAC. PT IN NO ACUTE DISTRESS. SAFETY MEASURES IN PLACE, BED IN LOWEST LOCKED POSITION, S/R UPX2, CALL LIGHT WITHIN REACH. WILL CONT TO MONITOR.
[2021-02-02 20:00] VITALS: BP 148/64
--- NOTE | 2021-02-03 06:58 | NUR ---
RN CLOSING NOTES PT RESTING IN BED, EASILY AWAKENS TO STIMULI. DENIES PAIN AT THIS TIME. NO SOB. PT OBSERVED NPO SINCE MIDNIGHT FOR PLANNED PLACEMENT OF 2ND PIGTAIL CATHETER TODAY. PT IS AWARE AND VERBALIZED UNDERSTANDING. NO ACUTE EVENTS DURING THE NIGHT. ALL NEEDS ATTENDED TO. SAFETY MEASURES MAINTAINED.
[2021-02-03] MEDS: HYDROMORPHONE INJ 2 MG/ML DISP.SYRIN IV PRN (07:24)
--- NOTE | 2021-02-03 07:25 | NUR ---
RN NOTE PT C/O 8/10 PAIN TO L-SHOULDER, GRIMACING AND GRASPING SITE. COMFORT MEASURES PROVIDED AND GIVEN DILAUDID 2MG IV ORDERED. ENDORSED TO NEXT SHIFT RN.
[2021-02-03] MEDS: PANTOPRAZOLE 40 MG TABLET.DR PO SCH (07:30)
[2021-02-03] MEDS: GLUCERNA SHAKE 237 ML CAN PO SCH ×2 (07:33→17:03)
[2021-02-03] MEDS: BLOOD SUGAR DIAGNOSTIC 1 EACH STRIP IN SCH ×4 (07:34→21:57)
[2021-02-03] MEDS: INSULIN REGULAR, HUMAN 100 UNIT/ML 3 ML VIAL SQ PRN ×2 (07:34→21:53)
--- NOTE | 2021-02-03 07:54 | NUR ---
MS RN OPENING NOTES RECEIVED PATIENT IN BED, AWAKE, A/O X4. PATIENT ON ROOM AIR; BREATHING EVEN AND UNLABORED AT THIS TIME; NO SOB NOTED. PAIN TREATED WITH PRN MEDICATION PER MD ORDER. IV ACCESS AT [facility] #20 PRESENT AND INTACT; SL. WILL HAVE A 2ND PIGTAIL PLACEMENT PROCEDURE DONE TODAY, PATIENT NPO AT THIS TIME. SAFETY PRECAUTIONS IN PLACE; BED IN LOW POSITION AND LOCKED, RAILS UP X2, CALL LIGHT WITHIN REACH. WILL CONTINUE TO MONITOR PATIENT.
[2021-02-03 08:00] VITALS: BP 145/82
[2021-02-03] MEDS: ASPIRIN 81 MG TAB.CHEW PO SCH (08:05)
[2021-02-03] MEDS: AMLODIPINE BESYLATE 10 MG TABLET PO SCH (08:05)
[2021-02-03] MEDS: HYDROCHLOROTHIAZIDE 25 MG TABLET PO SCH (08:05)
[2021-02-03] MEDS: LOSARTAN POTASSIUM 25 MG TABLET PO SCH (08:05)
[2021-02-03] MEDS: CEFTRIAXONE 2 G in IV D5W 100 ML IV SCH (10:01)
[2021-02-03] MEDS: ONDANSETRON HCL/PF 4 MG/2 ML VIAL IVP PRN (12:17)
--- NOTE | 2021-02-03 15:07 | NUR ---
MS RN NOTES CONTACTED RADIOLOGY TO FOLLOW UP ON PIGTAIL PLACEMENT. PER RADIOLOGY THE PROCEDURE WAS CANCELLED PER MD.
[2021-02-03 16:00] VITALS: BP 145/84
--- NOTE | 2021-02-03 18:51 | NUR ---
MS RN CLOSING NOTES PATIENT IN BED, AWAKE, A/O X4. PATIENT ON ROOM AIR; BREATHING EVEN AND UNLABORED AT THIS TIME; NO SOB NOTED. NO COMPLAINS OF PAIN AT THE MOMENT. IV ACCESS AT LFA G #20 PRESENT AND INTACT; SL. ALL NEEDS ATTENDED DURING THE DAY. SAFETY PRECAUTIONS IN PLACE; BED IN LOW POSITION AND LOCKED, RAILS UP X2, CALL LIGHT WITHIN REACH. WILL ENDORSE TO [employer] ASSEMBLY SUPERVISOR NURSE.
[2021-02-03] MEDS: HYDROCODONE/APAP 5/325MG TABLET PO PRN (19:01)
[2021-02-03 20:54] VITALS: BP 144/70
--- NOTE | 2021-02-03 21:30 | NUR ---
RN OPENING NOTE PATIENT IN BED, AWAKE. PATIENT IS ABLE TO MAKE NEEDS KNOWN A/O X 4. BREATHING EVEN AND ULABORED, TOLERATING RA. PATIENT HAS A L FLANK PIGTAIL CATH ON, DRESSING C/DI. PATIENT HAS A LFA 20 G, SALINE LOCKED ONLY, PATENT AND INTACT. NO COMPLAINS OF PAIN AT THIS TIME. SAFETY MEASURES IN PLACE: BED LOCKED AND IN LOWEST POSITION, CALL LIGHT WITHIN REACH, SIDE RAILS UP. WILL MONITOR PATIENT CLOSELY.
--- NOTE | 2021-02-03 21:57 | NUR ---
RN NOTE BS 303 MG/DL. ADMINISTERED 8 UNITS OF REGULAR INSULIN. PATIENT HAS SNACKS AT BEDSIDE. WILL MONITOR FOR HYPOGLYCEMIA.
[2021-02-04] MEDS: HYDROCODONE/APAP 5/325MG TABLET PO PRN ×2 (05:27→16:02)
--- NOTE | 2021-02-04 05:30 | NUR ---
RN NOTE NORCO 5/325 GIVEN FOR SHOULDER PAIN 10/25. WILL REASSESS EFFECTIVENESS AT A LATER TIME.
[2021-02-04] MEDS: INSULIN REGULAR, HUMAN 100 UNIT/ML 3 ML VIAL SQ PRN ×3 (06:04→17:46)
--- NOTE | 2021-02-04 06:09 | NUR ---
RN NOTE BS 164 MG/DL, 3 UNITS OF REGULAR INSULIN GIVEN. WILL MONITOR FOR HYPOGLYCEMIA. SNACKS AT BEDSIDE.
[2021-02-04 06:24] LABS: BASOPHILS % (AUTO) 0.1 % (0.0-2.0); EOSINOPHILS % (AUTO) 0.4 % (0.0-6.0); HEMATOCRIT 27 % (33-45); HEMOGLOBIN 8.9 g/dL (11.5-14.8); LYMPHOCYTES # (AUTO) 14.5 K/uL (0.8-4.8); LYMPHOCYTES % (AUTO) 70.9 % (20.0-44.0); MEAN CORPUSCULAR HGB CONC 32 g/dl (31.0-36.0); MEAN CORPUSCULAR VOLUME 94 fL (82-100); MONOCYTES # (AUTO) 0.8 K/uL (0.1-1.30); MONOCYTES % (AUTO) 3.9 % (2.0-12.0); NEUTROPHILS # (AUTO) 5.1 K/uL (1.8-8.9); NEUTROPHILS % (AUTO) 24.7 % (43.0-81.0); PLATELET COUNT (AUTO) 512 K/uL (150-450); WHITE BLOOD COUNT (AUTO) 20.5 K/uL (4.3-11.0)
[2021-02-04] MEDS: BLOOD SUGAR DIAGNOSTIC 1 EACH STRIP IN SCH ×3 (06:32→17:32)
--- NOTE | 2021-02-04 06:40 | NUR ---
RN CLOSING NOTE PATIENT IN BED, ASLEEP, EASILY AROUSED. PATIENT DID NOT COMPLAIN OF ANY PAIN OR DISCOMFORT AT THIS TIME. BREATHING EVEN AND UNLABORED, TOLERATING RA. PATIENT'S L FLANK PIGTAIL CATHETER STILL PATENT AND INTACT, WITH SEROSANGUINEOUS COLORED FLUID IN THE BAG MARKED AT 300 ML, NO OUTPUT DURING THE SHIFT. PAIN MANAGED WITH NORCO, PATIENT'S LEFT FA 20 G SALINE LOCKED, PATENT AND INTACT. SAFETY MEASURES IMPLEMENTED. ALL NEEDS MET AND ATTENDED. ALL ORDERS CARRIED OUT. WILL ENDORSE TO DAY SHIFT NURSE FOR FARAZ.
[2021-02-04 06:59] LABS: CALCIUM, SERUM 8.8 mg/dL (8.5-10.1); CREATININE 0.8 mg/dL (0.6-1.3); MAGNESIUM 2.1 mg/dL (1.8-2.4); PHOSPHORUS 3.5 mg/dL (2.5-4.9); POTASSIUM 4.2 mmol/L (3.5-5.1)
--- NOTE | 2021-02-04 07:30 | NUR ---
MS RN OPENING NOTE RECEIVED PATIENT IN BED, ASLEEP, EASILY AROUSED. NO COMPLAINTS OF ANY PAIN OR DISCOMFORT AT THIS TIME. BREATHING EVEN AND UNLABORED, TOLERATING RA. PATIENT'S L FLANK PIGTAIL CATHETER STILL PATENT AND INTACT, WITH SEROSANGUINEOUS COLORED FLUID IN THE BAG MARKED AT 300 ML. IV ACCESS ON LEFT FA 20 G SALINE LOCKED, PATENT AND INTACT. SAFETY MEASURES IN PLACE: BED ON LOWEST LOCKED POSITION, SIDE RAILS UP X 2, CALL LIGHT WITHIN EASY REACH. WILL CONTINUE TO MONITOR ACCORDINGLY.
[2021-02-04] MEDS: PANTOPRAZOLE 40 MG TABLET.DR PO SCH (07:32)
[2021-02-04 08:00] VITALS: BP 140/61
[2021-02-04] MEDS: GLUCERNA SHAKE 237 ML CAN PO SCH ×2 (08:08→17:18)
[2021-02-04] MEDS: ASPIRIN 81 MG TAB.CHEW PO SCH (08:40)
[2021-02-04] MEDS: AMLODIPINE BESYLATE 10 MG TABLET PO SCH (08:40)
[2021-02-04] MEDS: LOSARTAN POTASSIUM 25 MG TABLET PO SCH (08:41)
[2021-02-04] MEDS: HYDROCHLOROTHIAZIDE 25 MG TABLET PO SCH (08:41)
[2021-02-04 09:07] LABS: IMMUNOGLOBULIN A, SERUM 200 mg/dL (87-352); IMMUNOGLOBULIN G, SERUM 1086 mg/dL (586-1602); IMMUNOGLOBULIN M, SERUM 72 mg/dL (26-217)
--- NOTE | 2021-02-04 09:38 | NUR ---
RN NOTES CALLED RADIOLOGY REGARDING THE PIGTAIL CATHETER INSERTION TO CLARIFY WHY THE PROCEDURE WAS CANCELLED YESTERDAY, AND TO INFORM REGARDING DR. QUINONES'S PLAN. PER HENOK OF RADIOLOGY THERE WAS NO ENOUGH FLUID TO DRAIN THIS IS WHY THEY CANCELLED THE PROCEDURE. INFORMED DR. QUINONES REGARDING RADIOLOGY INFORMATION. WILL FOLLOW UP.
--- NOTE | 2021-02-04 10:54 | NUR ---
RN NOTES INFORMED DR. QUINONES REGARDING PATIENT'S CONCERN. TO HAVE THE PIGTAIL REMOVED AND BE DISCHARGED. DR. QUINONES ACKNOWLEDGED.
--- NOTE | 2021-02-04 11:00 | NUR ---
RN NOTES INFORMED RADIOLOGY DEPARTMENT REGARDING CONCERN. PER HENOK OF RADIOLOGY THEY DON'T REMOVED PIGTAIL. INFORMED CHARGE NURSE SOFIA MADE AWARE. INFORMED JULIO MCFADDEN IF HE CAN HELP TO REMOVE THE PIGTAIL. JULIO MCGRATH ACKNOWLEDGED. DR. JAMESON MADE AWARE OF ALL THE CONCERN OF PATIENT AND OTHER ATTENDING MD.
[2021-02-04] MEDS: CEFTRIAXONE 2 G in IV D5W 100 ML IV SCH (11:08)
[2021-02-04 16:00] VITALS: BP 115/94
--- NOTE | 2021-02-04 17:15 | NUR ---
RN NOTES PIGTAIL REMOVED BY JULIO MCGRATH AND DR. CHOI. CHEST XRAY DONE POST REMOVAL ORDERED.
[2021-02-04] MEDS ORDERED: AMOX-430 PO (17:16)
--- NOTE | 2021-02-04 19:21 | NUR ---
MS RN CLOSING NOTE PATIENT IN BED, ASLEEP, EASILY AROUSED. NO COMPLAINTS OF ANY PAIN OR DISCOMFORT AT THIS TIME. BREATHING EVEN AND UNLABORED, TOLERATING RA. IV ACCESS ON LEFT FA 20 G SALINE LOCKED, PATENT AND INTACT. SAFETY MEASURES IN PLACE: BED ON LOWEST LOCKED POSITION, SIDE RAILS UP X 2, CALL LIGHT WITHIN EASY REACH. PATIENT IS FOR DISCHARGE. DISCHARGE INSTRUCTIONS GIVEN TO PATIENT. INSTRUCTED ON FOLLOW UP, PATIENT VERBALIZED UNDERSTANDING. AWAITING FOR HER RIDE HOME. ALL NEEDS ATTENDED AND MET. DUE MEDS GIVEN ORDERED. ENDORSED TO PM SHIFT FOR FARAZ.
== END 2021-02-04 19:25 | disposition home or self-care (01) | DRG 178 ==
LOC: ER 22:07 → TELE 01-20 03:04 → MED 01-20 08:48
PROVIDERS: ATTEND Family Medicine
PROC: 0W9B3ZZ Drainage of Left Pleural Cavity, Percutaneous Approach (ICD-10-PCS; 2021-01-21)
PROC: 30233N1 Transfusion of Nonautologous Red Blood Cells into Peripheral Vein, Percutaneous Approach (ICD-10-PCS; 2021-01-21)
PROC: 0W9B30Z Drainage of Left Pleural Cavity with Drainage Device, Percutaneous Approach (ICD-10-PCS; 2021-01-22)
PROC: 3E0L3GC Introduction of Other Therapeutic Substance into Pleural Cavity, Percutaneous Approach (ICD-10-PCS; principal; 2021-01-26)
DX: J86.9 Pyothorax without fistula (principal); C91.10 Chronic lymphocytic leukemia of B-cell type not having achieved remission; J98.11 Atelectasis; J90 Pleural effusion, not elsewhere classified; Z20.822 Contact with and (suspected) exposure to COVID-19; J43.2 Centrilobular emphysema; B96.1 Klebsiella pneumoniae [K. pneumoniae] as the cause of diseases classified elsewhere; D69.6 Thrombocytopenia, unspecified; D53.9 Nutritional anemia, unspecified; D75.839 Thrombocytosis, unspecified; F17.210 Nicotine dependence, cigarettes, uncomplicated; Z90.710 Acquired absence of both cervix and uterus; E11.65 Type 2 diabetes mellitus with hyperglycemia; I10 Essential (primary) hypertension; D47.2 Monoclonal gammopathy; R16.1 Splenomegaly, not elsewhere classified; R59.0 Localized enlarged lymph nodes; E86.0 Dehydration; Z79.899 Other long term (current) drug therapy; Z79.4 Long term (current) use of insulin
CPT/HCPCS: 36415; 71045-TC; 71250-TC; 75989; 75989-TC; 76604-TC; 77075-TC; 80048-TC; 80053-TC; 80061-TC; 80076-TC; 80202-TC; 81001; 82232; 82728-TC; 82784; 82962-TC; 83010; 83540-TC; 83615-TC; 83735-TC; 84100-TC; 84155; 84165; 84443-TC; 84484-TC; 84550-TC; 85025-TC; 85045-TC; 85378-TC; 85610-TC; 85730-TC; 86334; 86850-TC; 87040-TC; 87070-TC; 87075-TC; 87081-TC; 87102-TC; 87186-TC; 89051-TC; 93307-TC; C9803; G0378; J0696; J1170; J1200; J1815; J2250; J2270; J2310; J2405; J2543; J2997; J3010; J3370; J3490; J7030; J7040; J7050; J7060; P9016; Q9967